=== PATIENT | female | born 2000 | race African-American/Black ===

== ENCOUNTER 2019-01-05 22:21 | Emergency (ER) | payer OTHER ==
--- OUTSIDE RECORDS SUMMARY | 2019-01-05 22:23 | XMS REPORT | Summary of Care ---
:2000 Author Organization [facility] Address [address] [place] [address] Encounter [facility] [id number] Date(s): 07/19/18 - 07/19/18 [facility] [address] [place] [address]- Discharge Disposition: Discharged to Home or Self Care Attending Physician: Ysabel Fox Admitting Physician: Ysabel Fox Referring Physician: Ysabel Fox Vital Signs No data available for this section Problem List No data available for this section Allergies, Adverse Reactions, Alerts No data available for this section Medications No data available for this section Results No data available for this section Immunizations No data available for this section Procedures No data available for this section Social History No data available for this section Assessment and Plan No data available for this section
--- OUTSIDE RECORDS SUMMARY | 2019-01-05 22:23 | XMS REPORT | Continuity of Care Document ---
:2000 Author Organization Interface Problems Problem Status Onset Classification Date Comments Source Date Reported STD Active Diagnosis 11/19/2017 [facility] Constipation, Active Problem 12/27/2018 [facility] unspecified Family constipation Practice type Acute Active Diagnosis 08/21/2018 [facility] tonsillitis, Family unspecified Practice etiology Acute midline Active Diagnosis 12/27/2018 [facility] low back pain Family without sciatica Practice Lower abdominal Active Diagnosis 12/27/2018 [facility] pain [facility] Practice Adult BMI Active Diagnosis 12/27/2018 [facility] 25.0-25.9 kg/sq Family m Practice Encounter for Active Diagnosis 12/27/2018 [facility] screening [facility] Practice Abdominal pain Active Diagnosis 02/20/2018 [facility] Left anterior Active Diagnosis 08/27/2018 [facility] knee pain [facility] Practice Abscess Active Diagnosis 11/19/2017 [facility] Nasal congestion Active Diagnosis 08/27/2018 [facility] Screen for STD Active Diagnosis 08/27/2018 [facility] Medications Medication Details Route Status Patient Ordering Order Source Instructions Provider Date Diflucan 1 tab(s) orally Active 150 mg orally Ruddy Sugar once 018 [facility] Keflex 1 cap(s) orally Active 500 mg orally Ruddy Sugar BID [address] [place] [address] azithromycin 2 TABS orally Active 500 mg orally Ruddy Sugar once a day [address] [place] [address] Flagyl 1 tab(s) orally Active 500 mg orally Ruddy Sugar BID [address] [place] [address] Tri-Sprintec 1 tab(s) orally Active triphasic 35 Ruddy 10/20/ Sugar mcg orally once 018 [facility] a day [facility] doxycycline 1 cap(s) orally Active hyclate 100 mg Ruddy 10/15/2 [facility] orally 2 times 018 [facility] a day with food [facility] Macrobid 1 cap(s) orally Active macrocrystals-m Ruddy Sugar onohydrate [facility] mg orally 2 Family times a day Practice Azithromycin 5 2 tablets orally Active 250 mg orally Ruddy Sugar Day Dose Pack on the once a day [facility] first day, Family then 1 Practice tablet daily for 4 days Allergies, Adverse Reactions, Alerts Substance Category Reaction Severity Reaction Status Date Comments Source type Reported N.K.D.A. Adverse Info Not Adverse Active Sugar Reaction Available Reaction [facility] Immunizations Immunization Date Given Site Status Last Updated Comments Source Results Order Results Value Reference Date Interpretation Comments Source Name Range Vital Signs Vital Sign Value Date Comments Source Height 66 12/20/2018 [facility] Weight 156 12/20/2018 [facility] Temperature Oral (F) 96.0 F 12/20/2018 [facility] Diastolic (mm Hg) 72 12/20/2018 [facility] Systolic (mm Hg) 110 12/20/2018 [facility] Height 66 08/19/2018 [facility] Weight 155 08/19/2018 [facility] Temperature Oral (F) 96.8 F 08/19/2018 [facility] Diastolic (mm Hg) 78 08/19/2018 [facility] Systolic (mm Hg) 112 08/19/2018 [facility] Height 66 07/19/2018 [facility] Weight 149 07/19/2018 [facility] Temperature Oral (F) 96.8 F 07/19/2018 [facility] Diastolic (mm Hg) 72 07/19/2018 [facility] Systolic (mm Hg) 108 07/19/2018 [facility] Height 66 05/11/2018 [facility] Weight 145 05/11/2018 [facility] Temperature Oral (F) 96.8 F 05/11/2018 [facility] Diastolic (mm Hg) 70 05/11/2018 [facility] Systolic (mm Hg) 106 05/11/2018 [facility] Height 66 02/11/2018 [facility] Weight 150 02/11/2018 [facility] Temperature Oral (F) 96.8 F 02/11/2018 [facility] Diastolic (mm Hg) 80 02/11/2018 [facility] Systolic (mm Hg) 102 02/11/2018 [facility] Height 66 11/12/2017 [facility] Weight 150 11/12/2017 [facility] Temperature Oral (F) 96.4 F 11/12/2017 [facility] Diastolic (mm Hg) 80 11/12/2017 [facility] Systolic (mm Hg) 110 11/12/2017 [facility] Encounters Location Location Encounter Encounter Reason Attending ADM DC Status Source Details Type Number For Provider Date Date Visit [facility] Outpatient [id number] Ysabel 07/19 07/19 Active [facility] Outpatient [id number] Ysabel 07/19 07/20 NATACHA Fox [facility] Procedures Procedure Code Date Perfomer Comments Source
--- OUTSIDE RECORDS SUMMARY | 2019-01-05 22:24 | XMS REPORT ---
:2000 Author Organization eClinicalWorks Care Team Providers Name Role Phone Ruddy Ysabel Provider Role Unavailable Allergies, Adverse Reactions, Alerts Substance Reaction Event Type N.K.D.A. Info Not Available Non Drug Allergy Problems Problem Type Condition Code Onset Dates Condition Status Assessment Abdominal pain R10.9 Active Assessment Constipation, unspecified K59.00 Active constipation type Problem Constipation, unspecified K59.00 Active constipation type Medications Medication Code System Code Instructions Start End Date Status Dosage Date Diflucan NDC 46892027435 150 mg orally November 12, Active 1 tab(s) once 2017 Keflex NDC 50648653632 500 mg orally November 12, Active 1 cap(s) BID 2017 doxycycline ND 52049846729 hyclate 100 mg Oct 15, Active 1 cap(s) orally 2 times a 2018 day with food Tri-Sprintec [facility] 62267501407 triphasic 35 mcg Oct 20, Active 1 tab(s) orally once a 2018 day Vital Signs Date/Time: February 11, 2018 Height 66 in Weight 150 lbs Temperature 96.8 F Pulse 91 /min BMI 24.21 Index Blood Pressure Diastolic 80 mm Hg Blood Pressure Systolic 102 mm Hg Results Name Result Date Reference Range Unit Abnormality Flag Urinalysis, dipstick ----Nitrite neg 20180211 ----Uro 2.0 20180211 ----Protein 30 mg/dL 20180211 ----pH 7.0 20180211 ----Blood neg 20180211 ----Glucose neg 20180211 ----Leukocytes neg 20180211 ----Bilirubin neg 20180211 ----Ketone trace 20180211 ----Specific [place] >=1.030 20180211 Summary Purpose eClinicalWorks Submission
--- OUTSIDE RECORDS SUMMARY | 2019-01-05 22:24 | XMS REPORT ---
:2000 Author Organization [employer] Care Team Providers Name Role Phone Ysabel Fox Provider Role Unavailable Allergies, Adverse Reactions, Alerts Substance Reaction Event Type N.K.D.A. Info Not Available Non Drug Allergy Problems Problem Type Condition Code Onset Dates Condition Status Assessment Left anterior knee pain M25.562 Active Problem Constipation, unspecified K59.00 Active constipation type Medications Medication Code Code Instructions Start End Status Dosage System Date Date Azithromycin 5 [facility] 34765063037 250 mg orally Active 2 tablets Day Dose Pack once a day on the first day, then 1 tablet daily for 4 days Tri-Sprintec [facility] 15089952487 triphasic 35 Oct 20, Active 1 tab(s) mcg orally once 2018 a day Vital Signs Date/Time: Jul 19, 2018 Height 66 in Weight 149 lbs Temperature 96.8 F BMI 24.05 Index Blood Pressure Diastolic 72 mm Hg Blood Pressure Systolic 108 mm Hg Results No Known Results Summary Purpose eClinicalWorks Submission
--- OUTSIDE RECORDS SUMMARY | 2019-01-05 22:24 | XMS REPORT ---
:2000 Author Organization eClinicalWorks Care Team Providers Name Role Phone Ysabel Fox Provider Role Unavailable Allergies, Adverse Reactions, Alerts Substance Reaction Event Type N.K.D.A. Info Not Available Non Drug Allergy Problems Problem Type Condition Code Onset Dates Condition Status Assessment Acute tonsillitis, unspecified J03.90 Active etiology Problem Constipation, unspecified K59.00 Active constipation type Medications Medication Code Code Instructions Start End Status Dosage System Date Date Tri-Sprintec [facility] [id number] triphasic 35 Oct 20, Active 1 tab(s) mcg orally once 2018 a day Azithromycin 5 [facility] 41681341124 250 mg orally Active 2 tablets Day Dose Pack once a day on the first day, then 1 tablet daily for 4 days Vital Signs Date/Time: May 11, 2018 Height 66 in Weight 145 lbs Temperature 96.8 F BMI 23.40 Index Blood Pressure Diastolic 70 mm Hg Blood Pressure Systolic 106 mm Hg Results No Known Results Summary Purpose eClinicalWorks Submission
--- OUTSIDE RECORDS SUMMARY | 2019-01-05 22:24 | XMS REPORT ---
:2000 Author Organization eClinicalWorks Care Team Providers Name Role Phone Ysabel Fox Provider Role Unavailable Allergies No Known Allergies Problems Problem Type Condition Code Onset Dates Condition Status Assessment STD (female) A64 Active Medications No Known Medications Results No Known Results Summary Purpose eClinicalWorks Submission
--- OUTSIDE RECORDS SUMMARY | 2019-01-05 22:24 | XMS REPORT ---
:2000 Author Organization eClinicalWorks Care Team Providers Name Role Phone Ruddy Ysabel Provider Role Unavailable Allergies No Known Allergies Problems Problem Type Condition Code Onset Dates Condition Status Problem Constipation, unspecified K59.00 Active constipation type Medications Medication Code System Code Instructions Start Date End Date Status Dosage Macrobid [facility] [id number] macrocrystals-mon Active 1 cap(s) ohydrate 100 mg orally 2 times a day Results No Known Results Summary Purpose eClinicalWorks Submission
--- OUTSIDE RECORDS SUMMARY | 2019-01-05 22:24 | XMS REPORT ---
:2000 Author Organization eClinicalWorks Care Team Providers Name Role Phone Ysabel Fox Provider Role Unavailable Allergies No Known Allergies Problems No Known Problems Medications Medication Code System Code Instructions Start End Date Status Dosage Date azithromycin NDC 20106220424 500 mg orally Oct 26, Active 2 TABS once a day 2017 Flagyl NDC 42106352027 500 mg orally Oct 26, Active 1 tab(s) BID 2018 Results No Known Results Summary Purpose eClinicalWorks Submission
--- OUTSIDE RECORDS SUMMARY | 2019-01-05 22:24 | XMS REPORT ---
:2000 Author Organization eClinicalWorks Care Team Providers Name Role Phone Ysabel Fox Provider Role Unavailable Allergies No Known Allergies Problems Problem Type Condition Code Onset Dates Condition Status Assessment Acute tonsillitis, unspecified J03.90 Active etiology Problem Constipation, unspecified K59.00 Active constipation type Medications Medication Code Code Instructions Start End Status Dosage System Date Date Azithromycin 5 NDC 71543282296 250 mg orally Active 2 tablets Day Dose Pack once a day on the first day, then 1 tablet daily for 4 days Results No Known Results Summary Purpose eClinicalWorks Submission
--- OUTSIDE RECORDS SUMMARY | 2019-01-05 22:24 | XMS REPORT ---
:2000 Author Organization eClinicalWorks Care Team Providers Name Role Phone Ysabel Fox Provider Role Unavailable Allergies No Known Allergies Problems Problem Type Condition Code Onset Dates Condition Status Problem Constipation, unspecified K59.00 Active constipation type Medications No Known Medications Results No Known Results Summary Purpose eClinicalWorks Submission
--- OUTSIDE RECORDS SUMMARY | 2019-01-05 22:24 | XMS REPORT ---
:2000 Author Organization eClinicalWorks Care Team Providers Name Role Phone Ysabel Fox Provider Role Unavailable Allergies, Adverse Reactions, Alerts Substance Reaction Event Type N.K.D.A. Info Not Available Non Drug Allergy Problems Problem Type Condition Code Onset Dates Condition Status Assessment Abscess L02.91 Active Assessment STD (female) A64 Active Medications Medication Code System Code Instructions Start End Date Status Dosage Date Tri-Sprintec ND 06374820042 triphasic 35 mcg Oct 20, Active 1 tab(s) orally once a 2018 day Flagyl NDC 29549996483 500 mg orally Oct 26, Active 1 tab(s) BID 2017 doxycycline NDC 20848349994 hyclate 100 mg Oct 15, Active 1 cap(s) orally 2 times a 2018 day with food Diflucan NDC 00341571848 150 mg orally November 12, Active 1 tab(s) once 2018 Keflex NDC 04727372655 500 mg orally November 12, Active 1 cap(s) BID 2018 azithromycin NDC 56951077559 500 mg orally Oct 26, Active 2 TABS once a day 2018 Vital Signs Date/Time: November 12, 2017 Height 66 in Weight 150 lbs Temperature 96.4 F Pulse 70 /min BMI 24.21 Index Blood Pressure Diastolic 80 mm Hg Blood Pressure Systolic 110 mm Hg Results Name Result Date Reference Range Unit Abnormality Flag GC & CHLAMYDIA URINE APTIMA Summary Purpose eClinicalWorks Submission
--- OUTSIDE RECORDS SUMMARY | 2019-01-05 22:24 | XMS REPORT ---
:2000 Author Organization eClinicalWorks Care Team Providers Name Role Phone Ysabel Fox Provider Role Unavailable Allergies, Adverse Reactions, Alerts Substance Reaction Event Type N.K.D.A. Info Not Available Non Drug Allergy Problems Problem Type Condition Code Onset Dates Condition Status Assessment Acute midline low back pain without M54.5 Active sciatica Problem Constipation, unspecified K59.00 Active constipation type Assessment Lower abdominal pain R10.30 Active Assessment Adult BMI 25.0-25.9 kg/sq m Z68.25 Active Assessment Encounter for screening Z13.9 Active Medications Medication Code Code Instructions Start End Status Dosage System Date Date Tri-Sprintec [facility] 24333327684 triphasic 35 Oct 20, Active 1 tab(s) mcg orally once 2018 a day Azithromycin 5 [facility] 20343100103 250 mg orally Active 2 tablets Day Dose Pack once a day on the first day, then 1 tablet daily for 4 days Vital Signs Date/Time: December 20, 2018 Height 66 in Weight 156 lbs Temperature 96.0 F BMI 25.18 Index Blood Pressure Diastolic 72 mm Hg Blood Pressure Systolic 110 mm Hg Results Name Result Date Reference Range Unit Abnormality Flag Q-Aptima Chlamydia/Gonorrhoeae Unisex (urine/urethral/endocervical Urinalysis, dipstick ----Nitrite neg [id number] ----Uro 1.0 20181221 ----Protein neg 20181221 ----pH 8.5 20181221 ----Blood neg [id number] ----Clarity clear 20181221 ----Glucose neg 20181221 ----Leukocytes neg [id number] ----Bilirubin neg [id number] ----Ketone neg 20181221 ----Color yellow 20181221 ----Specific [place] 1.025 20181221 Q-HCG, TOTAL, QN ----HCG, TOTAL, QN 26 [id number] mIU/mL H Summary Purpose eClinicalWorks Submission
--- OUTSIDE RECORDS SUMMARY | 2019-01-05 22:25 | XMS REPORT ---
:2000 Author Organization eClinicalWorks Care Team Providers Name Role Phone Ysabel Fox Provider Role Unavailable Allergies, Adverse Reactions, Alerts Substance Reaction Event Type N.K.D.A. Info Not Available Non Drug Allergy Problems Problem Type Condition Code Onset Dates Condition Status Assessment Left anterior knee pain M25.562 Active Problem Constipation, unspecified K59.00 Active constipation type Assessment Nasal congestion R09.81 Active Assessment Screen for STD (sexually Z11.3 Active transmitted disease) Medications Medication Code Code Instructions Start End Status Dosage System Date Date Azithromycin 5 [facility] 44679169057 250 mg orally Active 2 tablets Day Dose Pack once a day on the first day, then 1 tablet daily for 4 days Tri-Sprintec [facility] 71560269418 triphasic 35 Oct 20, Active 1 tab(s) mcg orally once 2018 a day Vital Signs Date/Time: Aug 19, 2018 Height 66 in Weight 155 lbs Temperature 96.8 F BMI 25.01 Index Blood Pressure Diastolic 78 mm Hg Blood Pressure Systolic 112 mm Hg Results Name Result Date Reference Range Unit Abnormality Flag Q-Aptima Chlamydia/Gonorrhoeae Unisex (urine/urethral/endocervical Q-HIV 1/2 EIA ANTIBODY SCREEN W/REFLEXES Summary Purpose eClinicalWorks Submission
[2019-01-05 23:53] LABS: Absolute Lymphocytes (CBC) 0.4 K/uL (0.7-4.9); Absolute Monocytes 0.2 K/uL (0.1-1.3); Absolute Neutrophil 12.2 K/uL (1.8-8.0); Basophils % 0.2 % (0-1.3); Eosinophils % 0.2 % (0-4.4); Hematocrit 37.4 % (36.0-45.0); Lymphocytes % 3.1 % (15.3-44.8); MPV 9.7 fL (7.6-11.3); Monocytes % 1.8 % (3.3-12.3)
[2019-01-05 23:54] LABS: Urine Blood NEGATIVE (NEG); Urine Glucose NEGATIVE (NEG); Urine Protein 2+ (NEG); Urine Specific Gravity >1.030 (1.005-1.030)
[2019-01-06] MEDS ORDERED: NA CHLORIDE 0.9% 1,000 ML ONE ×2 (00:02→01:07)
[2019-01-06] MEDS ORDERED: ONDANSETRON 4 MG/2 ML VIAL ONE (00:02)
[2019-01-06 00:07] LABS: BUN Blood Urea Nitrogen 10 mg/dL (7-18); Bicarbonate 23 mmol/L (21-32); Glucose Level 93 mg/dL (74-106); Potassium 3.8 mmol/L (3.5-5.1); Sodium Level 138 mmol/L (136-145)
[2019-01-06 00:08] LABS: Urine Volume 1 ML
[2019-01-06 00:10] LABS: Urine Culture Reflex Order REFLEXED; Urine RBC <5 /HPF (NONE SEEN)
[2019-01-06 00:11] LABS: Urine Bacteria 20-50 /HPF (<20)
--- NOTE | 2019-01-06 00:36 | ER ---
Nurse's Notes [facility] Name: Toyin Pimentel Age: 18 yrs Sex: Female : 2000 Arrival Date: 01/05/2019 Time: 22:21 Bed 15 Private MD: Ysabel Fox Diagnosis: Vomiting;Dehydration;Urinary tract infection, site not specified Presentation: 01/05 22:30 Presenting complaint: Patient states: I have been throwing up all day. Transition of ed1 care: patient was not received from another setting of care. Onset of symptoms was January 05, 2019. Risk Assessment: Do you want to hurt yourself or someone else? Patient reports no desire to harm self or others. Initial Sepsis Screen: Does the patient meet any 2 criteria? No. Patient's initial sepsis screen is negative. Does the patient have a suspected source of infection? No. Patient's initial sepsis screen is negative. Care prior to arrival: None. 22:30 Method Of Arrival: Ambulatory ed1 22:30 Acuity: HAYDEN 4 ed1 Triage Assessment: 22:31 General: Appears in no apparent distress. Behavior is calm, cooperative. Pain: Denies ed1 pain. GI: Reports vomiting. 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 - Social history:: Smoking status: Patient/guardian denies using tobacco. - Ebola Screening: : Patient negative for fever greater than or equal to 101.5 degrees Fahrenheit, and additional compatible Ebola Virus Disease symptoms Patient denies exposure to infectious person Patient denies travel to an Ebola-affected area in the 21 days before illness onset No symptoms or risks identified at this time. - Family history:: not pertinent. - Hospitalizations: : No recent hospitalization is reported. Screenin:00 Abuse screen: Denies threats or abuse. Nutritional screening: No deficits noted. jb4 Tuberculosis screening: No symptoms or risk factors identified. Fall Risk None identified. Assessment: 23:00 General: Appears in no apparent distress. comfortable, Behavior is calm, cooperative, jb4 appropriate for age. Pain: Denies pain. Neuro: Level of Consciousness is awake, alert, obeys commands, Oriented to person, place, time, situation. Cardiovascular: Patient's skin is warm and dry. Respiratory: Airway is patent Respiratory effort is even, unlabored, Respiratory pattern is regular, symmetrical. GI: Abdomen is flat, non-distended, Reports vomiting. : No signs and/or symptoms were reported regarding the genitourinary system. EENT: No signs and/or symptoms were reported regarding the EENT system. Derm: Skin is intact, Skin is pink, warm \T\ dry. Musculoskeletal: Circulation, motion, and sensation intact. 01/06 00:00 Reassessment: Patient appears in no apparent distress at this time. Patient and/or jb4 family updated on plan of care and expected duration. Pain level reassessed. Patient is alert, oriented x 3, equal unlabored respirations, skin warm/dry/pink. 01:00 Reassessment: Patient appears in no apparent distress at this time. Patient and/or jb4 family updated on plan of care and expected duration. Pain level reassessed. Patient is alert, oriented x 3, equal unlabored respirations, skin warm/dry/pink. Pt waiting on fluids to finish prior to discharge. 02:20 Reassessment: Patient appears in no apparent distress at this time. Patient and/or jb4 family updated on plan of care and expected duration. Pain level reassessed. Patient is alert, oriented x 3, equal unlabored respirations, skin warm/dry/pink. Patient states feeling better. Vital Signs: 01/05 22:31 BP 113 / 73; Pulse 79; Resp 16; Temp 98.0(O); Pulse Ox 99% on R/A; Weight 73.03 kg; ed1 Height 5 ft. 6 in. (167.64 cm); Pain 0/10; 01/06 01:00 BP 103 / 68; Pulse 83; Resp 16; Pulse Ox 99% on R/A; jb4 01:31 BP 114 / 54; Pulse 97; Resp 16; Pulse Ox 100% on R/A; mt 02:11 BP 107 / 54; Pulse 81; Resp 16; Pulse Ox 100% on R/A; jb4 01/05 22:31 Body Mass Index 25.99 (73.03 kg, 167.64 cm) ed1 ED Course: 01/05 22:21 Patient arrived in ED. am2 22:22 Ysabel Fox is Private Physician. am2 22:30 Triage completed. ed1 22:31 Arm band placed on left wrist. ed1 22:33 Rolando Manley MD is Attending Physician. rn 22:49 Say Slade, MADDIE is Primary Nurse. jb4 23:00 Patient has correct armband on for positive identification. Bed in low position. Call jb4 light in reach. Side rails up X 1. Pulse ox on. NIBP on. 23:20 Missed attempt(s): 20 gauge in right in left antecubital area. jb4 23:36 Inserted saline lock: 22 gauge in right antecubital area, using aseptic technique. mt Blood collected. 01/06 02:23 No provider procedures requiring assistance completed. IV discontinued, intact, jb4 bleeding controlled. Administered Medications: 01/05 23:05 Drug: NS 0.9% 1000 ml Route: IV; Rate: 1000 ml; Site: right antecubital; jb4 01/06 02:17 Follow up: Response: No adverse reaction; IV Status: Completed infusion; IV Intake: jb4 1000ml 01/05 23:07 Drug: Zofran 4 mg Route: IVP; Site: right antecubital; jb4 01/06 02:18 Follow up: Response: No adverse reaction; Nausea is decreased jb4 00:59 Drug: NS 0.9% 1000 ml Route: IV; Rate: 1000 ml; Site: left antecubital; jb4 02:17 Follow up: Response: No adverse reaction; IV Status: Completed infusion; IV Intake: jb4 1000ml 01:07 Drug: Macrobid 100 mg Route: PO; jb4 02:16 Follow up: Response: No adverse reaction jb4 Intake: 02:17 IV: 1000ml; Total: 1000ml. jb4 02:17 IV: 1000ml; Total: 2000ml. jb4 Outcome: 00:35 Discharge ordered by . rn 02:24 Discharged to home ambulatory. jb4 02:24 Condition: stable 02:24 Discharge instructions given to patient, Instructed on discharge instructions, follow up and referral plans. medication usage, Demonstrated understanding of instructions, follow-up care, medications, Prescriptions given X 2. 02:25 Patient left the ED. jb4 Signatures: Rolando Manley MD MD rn Kalyani Navarrete RN RN ed1 Say Slade RN RN jb4 Mirna Guillen am2 Beverley Tellez mt Corrections: (The following items were deleted from the chart) 02:20 01:00 Reassessment: Patient appears in no apparent distress at this time. Patient jb4 and/or family updated on plan of care and expected duration. Pain level reassessed. Patient is alert, oriented x 3, equal unlabored respirations, skin warm/dry/pink. jb4
--- NOTE | 2019-01-06 00:36 | EDPHYS ---
Physician Documentation [facility] Name: Toyin Pimentel Age: 18 yrs Sex: Female : 2000 Arrival Date: 01/05/2019 Time: 22:21 Bed 15 Private MD: Ysabel Fox ED Physician Rolando Manley HPI: 01/06 00:03 This 18 yrs old Black Female presents to ER via Ambulatory with complaints of Vomiting rn - 5 wks preg. 00:03 The patient presents to the emergency department with nausea, vomiting. rn 00:03 Onset: The symptoms/episode began/occurred today. Possible causes: unknown. Associated rn signs and symptoms: Pertinent positives: nausea, vomiting, Pertinent negatives: abdominal pain, fever, GI bleeding, vaginal discharge. Severity of symptoms: At their worst the symptoms were moderate in the emergency department the symptoms are unchanged. The patient has not experienced similar symptoms in the past. Reports approx 5 weeks , started throwing up today, no diarrhea or fever, mild cramping, but no abd pain. Feels dehydrated and not able to keep fluids down.. [employer]: 01/05 22:31 1, LMP 11/28/2018 ed1 Historical: - Allergies: 22:31 No Known Allergies; ed1 - Home Meds: 22:31 Vitamin Oral tab 1 tab once daily [Active]; ed1 - PMHx: 22:31 None; ed1 - PSHx: 22:31 None; ed1 - Immunization history:: Adult Immunizations up to date. - Social history:: Smoking status: Patient/guardian denies using tobacco. - Ebola Screening: : Patient negative for fever greater than or equal to 101.5 degrees Fahrenheit, and additional compatible Ebola Virus Disease symptoms Patient denies exposure to infectious person Patient denies travel to an Ebola-affected area in the 21 days before illness onset No symptoms or risks identified at this time. - Family history:: not pertinent. - Hospitalizations: : No recent hospitalization is reported. ROS: 01/06 00:03 Constitutional: Negative for fever, chills, and weight loss, Eyes: Negative for injury, rn pain, redness, and discharge, Neck: Negative for injury, pain, and swelling, Cardiovascular: Negative for chest pain, palpitations, and edema, Respiratory: Negative for shortness of breath, cough, wheezing, and pleuritic chest pain, Abdomen/GI: Negative for abdominal pain, diarrhea, and constipation, MS/Extremity: Negative for injury and deformity, Skin: Negative for injury, rash, and discoloration, Neuro: + generalized weakness Exam: 00:03 Constitutional: This is a well developed, well nourished patient who is awake, alert, rn and in no acute distress. Head/Face: Normocephalic, atraumatic. Eyes: Pupils equal round and reactive to light, extra-ocular motions intact. Lids and lashes normal. Conjunctiva and sclera are non-icteric and not injected. Cornea within normal limits. Periorbital areas with no swelling, redness, or edema. ENT: dry MM Neck: Trachea midline, no thyromegaly or masses palpated, and no cervical lymphadenopathy. Supple, full range of motion without nuchal rigidity, or vertebral point tenderness. No Meningismus. Cardiovascular: Regular rate and rhythm No pulse deficits. Respiratory: No increased work of breathing, no retractions or nasal flaring. Abdomen/GI: soft, non-tender Skin: Warm, dry, no cellulitis MS/ Extremity: Pulses equal, no cyanosis. Neurovascular intact. Full, normal range of motion. Equal circumference. Neuro: Awake and alert, GCS 15, oriented to person, place, time, and situation. Cranial nerves II-XII grossly intact. Motor strength 5/5 in all extremities. Sensory grossly intact. Cerebellar exam normal. Normal gait. Vital Signs: 01/05 22:31 BP 113 / 73; Pulse 79; Resp 16; Temp 98.0(O); Pulse Ox 99% on R/A; Weight 73.03 kg; ed1 Height 5 ft. 6 in. (167.64 cm); Pain 0/10; 01/06 01:00 BP 103 / 68; Pulse 83; Resp 16; Pulse Ox 99% on R/A; jb4 01:31 BP 114 / 54; Pulse 97; Resp 16; Pulse Ox 100% on R/A; mt 02:11 BP 107 / 54; Pulse 81; Resp 16; Pulse Ox 100% on R/A; jb4 01/05 22:31 Body Mass Index 25.99 (73.03 kg, 167.64 cm) ed1 MDM: 01/05 22:33 Patient medically screened. rn 01/06 00:34 Differential diagnosis: Nonspecific abd pain, gastritis, cholecystitis, pancreatitis, rn viral gastroenteritis, gastroenteritis. Differential diagnosis: appendicitis, diverticulitis. Data reviewed: vital signs, nurses notes, lab test result(s), and as a result, I will. Counseling: I had a detailed discussion with the patient and/or guardian regarding: the historical points, exam findings, and any diagnostic results supporting the discharge/admit diagnosis, lab results, the need for outpatient follow up, to return to the emergency department if symptoms worsen or persist or if there are any questions or concerns that arise at home. Response to treatment: the patient's symptoms have mildly improved after treatment, and as a result, I will discharge patient. Special discussion: I discussed with the patient/guardian in detail that at this point there is no indication for admission to the hospital. It is understood, however, that if the symptoms persist or worsen the patient needs to return immediately for re-evaluation. Based on the history and exam findings, there is no indication for further emergent testing or inpatient evaluation. I discussed with the patient/guardian the need to see the OB Gyne specialist for further evaluation of the symptoms. ED course: Pt improved, + dehydration, + UTI, will dc home and defer u/s to OB as has no abd tenderness or vaginal bleeding or leakage of fluid. . 01/05 22:40 Order name: BMP; Complete Time: 00:33 rn 01/05 22:40 Order name: Urine Microscopic Only; Complete Time: 00:33 rn 01/05 22:41 Order name: CBC with Diff 01/05 23:44 Order name: Urine Dipstick--Ancillary (enter results) [facility] 01/05 23:44 Order name: Urine --Ancillary (enter results) [facility] 01/05 23:45 Order name: Urine Dipstick-Ancillary; Complete Time: 00: [facility] 01/05 22:40 Order name: IV Start; Complete Time: 23:36 rn 01/05 23:45 Order name: Urine --Ancillary; Complete Time: 00:02 [facility] 01/06 00:15 Order name: Urine Culture [facility] 01/06 01:13 Order name: CBC Smear Scan [facility] 01/05 22:40 Order name: Urine Dipstick-Ancillary (obtain specimen); Complete Time: 23:42 rn Administered Medications: 01/05 23:05 Drug: NS 0.9% 1000 ml Route: IV; Rate: 1000 ml; Site: right antecubital; jb4 01/06 02:17 Follow up: Response: No adverse reaction; IV Status: Completed infusion; IV Intake: jb4 1000ml 01/05 23:07 Drug: Zofran 4 mg Route: IVP; Site: right antecubital; jb4 01/06 02:18 Follow up: Response: No adverse reaction; Nausea is decreased jb4 00:59 Drug: NS 0.9% 1000 ml Route: IV; Rate: 1000 ml; Site: left antecubital; jb4 02:17 Follow up: Response: No adverse reaction; IV Status: Completed infusion; IV Intake: jb4 1000ml 01:07 Drug: Macrobid 100 mg Route: PO; jb4 02:16 Follow up: Response: No adverse reaction jb4 Disposition: 01/06/19 00:35 Discharged to Home. Impression: Vomiting, Dehydration, Urinary tract infection, site not specified. - Condition is Stable. - Discharge Instructions: Dehydration, Adult, Nausea and Vomiting, Adult, and Urinary Tract Infection. - Prescriptions for Zofran ODT 4 mg Oral tablet,disintegrating - place 1 tablet by TRANSLINGUAL route every 12 hours As needed; 10 tablet. Macrobid 100 mg Oral Capsule - take 1 capsule by ORAL route every 12 hours for 7 days; 14 capsule. - Medication Reconciliation Form, Thank You Letter, Antibiotic Education, Prescription Opioid Use form. - Follow up: Private Physician; When: As needed; Reason: Recheck today's complaints, Re-evaluation by your physician. - Problem is new. - Symptoms have improved. Signatures: Dispatcher [employer] EDMS Rolando Manley MD MD rn Riggs, Erika, RN RN ed1 Say Slade RN RN jb4 Corrections: (The following items were deleted from the chart) 02:25 00:35 01/06/2019 00:35 Discharged to Home. Impression: Vomiting; Dehydration; Urinary jb4 tract infection, site not specified. Condition is Stable. Forms are Medication Reconciliation Form, Thank You Letter, Antibiotic Education, Prescription Opioid Use. Follow up: Private Physician; When: As needed; Reason: Recheck today's complaints, Re-evaluation by your physician. Problem is new. Symptoms have improved. rn
[2019-01-06] MEDS ORDERED: NITROFURAN MACRO 100 MG CAP PO ONE (01:08)
[2019-01-06 01:13] LABS: Blood Morphology Comment NOT SEEN (NOT SEEN); Platelet Estimate ADEQ; Urine White Blood Cell Casts OK
== END 2019-01-06 02:25 | disposition home or self-care (01) ==
LOC: ER 22:21
DX: O21.9 Vomiting of pregnancy, unspecified (principal); O23.41 Unspecified infection of urinary tract in pregnancy, first trimester; E86.0 Dehydration; Z3A.01 Less than 8 weeks gestation of pregnancy
CPT/HCPCS: 36415; 80048; 81003; 81015; 81025; 85025; 87077; 87086; 87088; 87186; 96361; 96374; 99284; J2405; J7030

== ENCOUNTER 2021-08-07 13:00 | Emergency (ER) | payer BC, OTHER ==
--- OUTSIDE RECORDS SUMMARY | 2021-08-07 13:05 | XMS REPORT | Continuity of Care Document ---
:2000 Author Organization [facility] t Address [address] [place] [address] Care Team Providers Name Role Phone Paolo Russo DO Attending Clinician Mira MINE ENVIRONMENTAL ENGINEER Attending Clinician Sammie PERKINS, M Attending Clinician Unavailable MIRA Attending Clinician Unavailable Siena ZAMORANO C Attending Clinician Juan C Saleem MD Attending Clinician Flavia Phillips MD Attending Clinician 1, [facility] Usg Room Attending Clinician Unavailable Doctor Unassigned, Name Attending Clinician Unavailable Adriana SANCHEZ, L Attending Clinician Rocky Attending Clinician Unavailable Blu SANCHEZ W Attending Clinician Ultrasound Attending Clinician Unavailable Deepthi SANCHEZ M Attending Clinician Juan C Saleem MD Admitting Clinician Payers Payer Name Policy Type Policy Number Effective Date Expiration Date S ource Advance Directives Directive Decision Effective Termination Comments Source Date Date Healthcare Agents on N/A [facility] Agent Medical RelationshipCommunicationRoderick Branch MargaritoFatherHealth Care [phone] (Mobile) Fatemeh GhazalyMotherHealth Care [phone] (Mobile) Problems Condition Condition Condition Status Onset Resolution Last Treating Co mments Source Name Details Category Date Date Treatment Clinician Date Papanicola Papanicola Disease Active Overview : Univers ou smear ou smear 3-05 Repeat ity of of cervix of cervix 00:00: [place] with low with low 00 Medica l grade 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) BMI BMI Disease Active 2018-09 Univers 27.0-27.9, 27.0-27.9, 2-03 it y of adult adult 00:00: [address] Anemia, Anemia, Disease Active Univers antepartum antepartum 9-11 it y of , second , second 00:00: [place] trimester trimester 00 [facility] Vaginal Vaginal Disease Active Univers bleeding bleeding 9-10 ity of 00:00: [place] [address] Medical Branch 25 weeks 25 weeks Disease Active Unive rs gestation gestation 9-10 ity of of of 00:00: [place] 00 [facility] Echogenic Echogenic Disease Active Overview: Univers bowel of bowel of 7-31 And ity of fetus fetus 00:00: echogenic [place] [address] cardiac Medical foci, s/p Branch amniocent esis, results pending. UTI in UTI in Disease Active Overview: Univer s 5-10 neg nini ity of 00:00: [address] Abnormal Abnormal Disease Active Overview: Un hardeep glucose glucose 5-08 Passed ity of 00:00: 3hr [place] [address] gttTried Medical unable Branch to hold glucola down, pending A1c, will start checking blood sugars now, repeat 3hr gtt in 2nd trimester Supervisio Supervisio Disease Active U nivers n of n of 5-07 ity of high-risk high[place]risk [place] [facility] Allergies, Adverse Reactions, Alerts Allergy Allergy Status Severity Reaction(s) Onset Inactive Treating Comm ents Source Name Type Date Date Clinician NO KNOWN Allergy Active [facility] NO KNOWN Drug Active Univers ALLERGIE Class ity of S [facility] Social History Social Habit Start Date Stop Date Quantity Comments Source ASSERTION 2018-12-12 University 00:00:00 [facility] Tobacco use and 2019-11-17 2019-11-17 Never used Universit y of exposure 00:00:00 00:00:00 [facility] Alcohol intake 2019-11-17 2019-11-17 Current [facility] 00:00:00 00:00:00 non-drinker of [facility] alcohol Branch (finding) Sex Ass[birth year] At [birth year] Universit y of 00:00:00 00:00:00 [facility] Smoking Status Start Date Stop Date Source Never smoker [facility] Medications Ordered Filled Start Stop Current Ordering Indication Dosage Frequency Signature Comments Components Source Medication Medication Date Date Medication? Clinician (SIG) Name Name levonorgest 2020-0 Yes [id number] 1{tbl} Take 1 Univers rel-ethinyl 2-25 tablet by ity of estradiol 00:00: mouth [place] (LARISSIA) 00 daily. Medical 0.1-20 Branch mg-mcg per tablet levonorgest 2020-0 Yes [id number] 1{tbl} Take 1 Univers rel-ethinyl 2-25 tablet by ity of estradiol 00:00: mouth [place] (LARISSIA) 00 daily. Medical 0.1-20 Branch mg-mcg per tablet levonorgest 2020-0 Yes [id number] 1{tbl} Take 1 Univers rel-ethinyl 2-25 tablet by ity of estradiol 00:00: mouth [place] (LARISSIA) 00 daily. Medical 0.1-20 Branch mg-mcg per tablet levonorgest 2020-0 Yes [id number] 1{tbl} Take 1 Univers rel-ethinyl 2-25 tablet by ity of estradiol 00:00: mouth [place] (LARISSIA) 00 daily. Medical 0.1-20 Branch mg-mcg per tablet levonorgest 2020-0 Yes [id number] 1{tbl} Take 1 Univers rel-ethinyl 2-25 tablet by ity of estradiol 00:00: mouth [place] (LARISSIA) 00 daily. Medical 0.1-20 Branch mg-mcg per tablet docusate 2018-09 Yes [id number] 240mg Take 1 Uni vers calcium 240 2-18 capsule by it y of mg capsule 00:00: mouth [place] 00 daily as Medical needed for Branch Constipati on. ibuprofen 2018-09 Yes [id number] 600mg Take 1 Un hardeep 600 mg 2-18 tablet by ity of tablet 00:00: mouth [place] 00 every 6 Medical (six) Branch hours as needed (Pain). Take with food or milk. Iron Fum & 2019- Yes [id number] 1{capsu Take 1 Univers P-FA-Vit B 2-18 le} capsule by ity of & C No.9 00:00: mouth [place] (INTEGRA 00 daily. Medical PLUS) 125 Branch mg iron- 1 mg Cap docusate 2018-09 Yes [id number] 240mg Take 1 Uni vers calcium 240 2-18 capsule by it y of mg capsule 00:00: mouth [place] 00 daily as Medical needed for Branch Constipati on. ibuprofen 2018-09 Yes [id number] 600mg Take 1 Un hardeep 600 mg 2-18 tablet by ity of tablet 00:00: mouth [place] 00 every 6 Medical (six) Branch hours as needed (Pain). Take with food or milk. Iron Fum & 2018-09 Yes [id number] 1{capsu Take 1 Univers P-FA-Vit B 2-18 le} capsule by ity of & C No.9 00:00: mouth [place] (INTEGRA 00 daily. Medical PLUS) 125 Branch mg iron- 1 mg Cap docusate 2018-09 Yes [id number] 240mg Take 1 Uni vers calcium 240 2-18 capsule by it y of mg capsule 00:00: mouth [place] 00 daily as Medical needed for Branch Constipati on. ibuprofen 2018-09 Yes [id number] 600mg Take 1 Un hardeep 600 mg 2-18 tablet by ity of tablet 00:00: mouth [place] 00 every 6 Medical (six) Branch hours as needed (Pain). Take with food or milk. Iron Fum & 2018-09 Yes [id number] 1{capsu Take 1 Univers P-FA-Vit B 2-18 le} capsule by ity of & C No.9 00:00: mouth [place] (INTEGRA 00 daily. Medical PLUS) 125 Branch mg iron- 1 mg Cap docusate 2018-09 Yes [id number] 240mg Take 1 Uni vers calcium 240 2-18 capsule by it y of mg capsule 00:00: mouth [place] 00 daily as Medical needed for Branch Constipati on. ibuprofen 2018-09 Yes [id number] 600mg Take 1 Un hardeep 600 mg 2-18 tablet by ity of tablet 00:00: mouth [place] 00 every 6 Medical (six) Branch hours as needed (Pain). Take with food or milk. Iron Fum & 2018-09 Yes [id number] 1{capsu Take 1 Univers P-FA-Vit B 2-18 le} capsule by ity of & C No.9 00:00: mouth [place] (INTEGRA 00 daily. Medical PLUS) 125 Branch mg iron- 1 mg Cap docusate 2018-09 Yes [id number] 240mg Take 1 Uni vers calcium 240 2-18 capsule by it y of mg capsule 00:00: mouth [place] 00 daily as Medical needed for Branch Constipati on. ibuprofen 2018-09 Yes [id number] 600mg Take 1 Un hardeep 600 mg 2-18 tablet by ity of tablet 00:00: mouth [place] 00 every 6 Medical (six) Branch hours as needed (Pain). Take with food or milk. Iron Fum & 2019- Yes [id number] 1{capsu Take 1 Univers P-FA-Vit B 2-18 le} capsule by ity of & C No.9 00:00: mouth [place] (INTEGRA 00 daily. Medical PLUS) 125 Branch mg iron- 1 mg Cap 2018-0 Yes [facility] mouth. ity of fum/folic 15:26: [place] [address] Medical ( 1 Branch + 1 ORAL) 2019-0 Yes [facility] 9-10 mouth. ity of fum/folic 15:26: [place] [address] Medical ( 1 Branch + 1 ORAL) 2019-0 Yes Take by Unive rs vit/iron 9-10 mouth. ity of fum/folic 15:26: [place] [address] Medical ( 1 Branch + 1 ORAL) 2019-0 Yes [facility] 9-10 mouth. ity of fum/folic 15:26: [place] [address] Medical ( 1 Branch + 1 ORAL) 2019-0 Yes [facility] 9-10 mouth. ity of fum/folic 15:26: [place] [address] Medical ( 1 Branch + 1 ORAL) D5W-LR IV 2019-0 Yes 1000mL at 125 Univ ers infusion 9-10 mL/hr, IV ity of 1,000 mL 04:30: [place] CONTINUOUS Medical , Starting Branch 05/23/19 at 2330, Until Discontinu ed, Routine lactated 2018-0 2019- No 1000mL at 150 Univ ers ringers IV 9-10 09-10 mL/hr, ity of infusion 04:30: 02:52 1,000 mL, [place] as 1,000 mL 00 :00 IV Medical Infusion, Branch ONCE, 1 dose, 05/23/19 at 2330, Routine metroNIDAZO Yes [id number] 500mg Take 2 Univers LE 250 mg 9-10 tablets by ity of tablet 00:00: mouth (two) Medical times Branch daily. metroNIDAZO Yes [id number] 500mg Take 2 Univers LE 250 mg 9-10 tablets by ity of tablet 00:00: mouth (two) Medical times Branch daily. Iron, Cbn & Yes [id number] 1{tbl} Take 1 Univers Gluc-FA-B12 9-10 tablet by ity of -C-DSS 00:00: mouth [place] (FERRALET [address] DUAL-IRON DELIVERY) 90-1-12-50 mg-mg-mcg-m g per tablet metroNIDAZO Yes [id number] 500mg Take 2 Univers LE 250 mg 9-10 tablets by ity of tablet 00:00: mouth (two) Medical times [place] daily. Iron, Cbn & Yes [id number] 1{tbl} Take 1 Univers Gluc-FA-B12 9-10 tablet by ity of -C-DSS 00:00: mouth [place] (FERRALET [address] DUAL-IRON DELIVERY) 90-1-12-50 mg-mg-mcg-m g per tablet metroNIDAZO Yes [id number] 500mg Take 2 Univers LE 250 mg 9-10 tablets by ity of tablet 00:00: mouth (two) Medical times [place] daily. Iron, Cbn & Yes [id number] 1{tbl} Take 1 Univers Gluc-FA-B12 9-10 tablet by ity of -C-DSS 00:00: mouth [place] (FERRALET [address] DUAL-IRON DELIVERY) 90-1-12-50 mg-mg-mcg-m g per tablet metroNIDAZO Yes [id number] 500mg Take 2 Univers LE 250 mg 9-10 tablets by ity of tablet 00:00: mouth 2 (two) Medical times [place] daily. Iron, Cbn & Yes [id number] 1{tbl} Take 1 Univers Gluc-FA-B12 9-10 tablet by ity of -C-DSS 00:00: mouth [place] (FERRALET 00 daily. [facility] 90 Branch DUAL-IRON DELIVERY) 90-1-12-50 mg-mg-mcg-m g per tablet [place] 2018-0 Yes [id number] Use as Uni vers Device with 6-12 directed ity of Lancets 00:00: [place] (ONE TOUCH 00 Medical [facility] Kit Branch Blood-Gluco 2018-0 Yes [id number] Use as Univers se Meter 6-12 directed ity of (ONETOUCH 00:00: [place] VERIO SYNC) 00 Medical Kit Branch blood sugar 2018-0 Yes [id number] Use as Univers diagnostic 6-12 directed ity o f (ONETOUCH 00:00: [place] VERIO) 00 Medical strip Branch [place] 0 Yes [id number] Use as Uni vers Device with 6-12 directed ity of Lancets 00:00: [place] (ONE TOUCH 00 Medical [facility] Kit Branch Blood-Gluco 2018-0 Yes [id number] Use as Univers se Meter 6-12 directed ity of (ONETOUCH 00:00: [place] VERIO SYNC) 00 Medical Kit Branch blood sugar 2018-0 Yes [id number] Use as Univers diagnostic 6-12 directed ity o f (ONETOUCH 00:00: [place] VERIO) 00 Medical strip Branch [place] 2018-0 Yes [id number] Use as Uni vers Device with 6-12 directed ity of Lancets 00:00: [place] (ONE TOUCH 00 Medical [facility] Kit Branch Blood-Gluco 2018-0 Yes [id number] Use as Univers se Meter 6-12 directed ity of (ONETOUCH 00:00: [place] VERIO SYNC) 00 Medical Kit Branch blood sugar 2018-0 Yes [id number] Use as Univers diagnostic 6-12 directed ity o f (ONETOUCH 00:00: [place] VERIO) 00 Medical strip Branch [place] 2019-0 Yes [id number] Use as Uni vers Device with 6-12 directed ity of Lancets 00:00: [place] (ONE TOUCH 00 Medical [facility] Kit Branch Blood-Gluco 2018-0 Yes [id number] Use as Univers se Meter 6-12 directed ity of (ONETOUCH 00:00: [place] VERIO SYNC) 00 Medical Kit Branch blood sugar 2018-0 Yes [id number] Use as Univers diagnostic 6-12 directed ity o f (ONETOUCH 00:00: [place] VERIO) 00 Medical strip Branch [place] 2019-0 Yes [id number] Use as Uni vers Device with 6-12 directed ity of Lancets 00:00: [place] (ONE TOUCH 00 Medical [facility] Kit Branch Blood-Gluco 2019-0 Yes [id number] Use as Univers se Meter 6-12 directed ity of (ONETOUCH 00:00: [place] VERIO SYNC) 00 Medical Kit Branch blood sugar 2019-0 Yes [id number] Use as Univers diagnostic 6-12 directed ity o f (ONETOUCH 00:00: [place] VERIO) 00 Medical strip Branch [place] 2019-0 Yes [id number] Use as Uni vers Device with 6-12 directed ity of Lancets 00:00: [place] (ONE TOUCH 00 Medical [facility] Kit Branch Blood-Gluco 2019-0 Yes [id number] Use as Univers se Meter 6-12 directed ity of (ONETOUCH 00:00: [place] VERIO SYNC) 00 Medical Kit Branch blood sugar 2019-0 Yes [id number] Use as Univers diagnostic 6-12 directed ity o f (ONETOUCH 00:00: [place] VERIO) 00 Medical strip Branch [place] 2019-0 Yes [id number] Use as Uni vers Device with 6-12 directed ity of Lancets 00:00: [place] (ONE TOUCH 00 Medical [facility] Kit Branch Blood-Gluco 2019-0 Yes [id number] Use as Univers se Meter 6-12 directed ity of (ONETOUCH 00:00: [place] VERIO SYNC) 00 Medical Kit Branch Blood-Gluco 2019-0 Yes [id number] Use as Univers se Meter 6-12 directed ity of (ONETOUCH 00:00: [place] VERIO SYNC) 00 Medical Kit Branch blood sugar 2019-0 Yes [id number] Use as Univers diagnostic 6-12 directed ity o f (ONETOUCH 00:00: [place] VERIO) 00 Medical strip Branch [place] 2019-0 Yes [id number] Use as Uni vers Device with 6-12 directed ity of Lancets 00:00: [place] (ONE TOUCH 00 Medical DELICA) Kit Branch blood sugar 2019-0 Yes [id number] Use as Univers diagnostic 6-12 directed ity o f (ONETOUCH 00:00: [place] VERIO) 00 Medical strip Branch [place] 2019-0 Yes [id number] Use as Uni vers Device with 6-12 directed ity of Lancets 00:00: [place] (ONE TOUCH 00 Medical DELICA) Kit Branch Blood-Gluco 2019-0 Yes [id number] Use as Univers se Meter 6-12 directed ity of (ONETOUCH 00:00: [place] VERIO SYNC) 00 Medical Kit Branch blood sugar 2019-0 Yes [id number] Use as Univers diagnostic 6-12 directed ity o f (ONETOUCH 00:00: [place] VERIO) 00 Medical strip Branch [place] 2019-0 Yes [id number] Use as Uni vers Device with 6-12 directed ity of Lancets 00:00: [place] (ONE TOUCH 00 Medical DELICA) Kit Branch Blood-Gluco 2019-0 Yes [id number] Use as Univers se Meter 6-12 directed ity of (ONETOUCH 00:00: [place] VERIO SYNC) 00 Medical Kit Branch blood sugar 2019-0 Yes [id number] Use as Univers diagnostic 6-12 directed ity o f (ONETOUCH 00:00: [place] VERIO) 00 Medical strip Branch [place] 2019-0 Yes [id number] Use as Uni vers Device with 6-12 directed ity of Lancets 00:00: [place] (ONE TOUCH 00 Medical DELICA) Kit Branch Blood-Gluco 2019-0 Yes [id number] Use as Univers se Meter 6-12 directed ity of (ONETOUCH 00:00: [place] VERIO SYNC) 00 Medical Kit Branch blood sugar 2019-0 Yes [id number] Use as Univers diagnostic 6-12 directed ity o f (ONETOUCH 00:00: [place] VERIO) 00 Medical strip Branch [place] 2019-0 Yes [id number] Use as Uni vers Device with 6-12 directed ity of Lancets 00:00: [place] (ONE TOUCH 00 Medical DELICA) Kit Branch Blood-Gluco 2019-0 Yes [id number] Use as Univers se Meter 6-12 directed ity of (ONETOUCH 00:00: [place] VERIO SYNC) 00 Medical Kit Branch blood sugar 2019-0 Yes [id number] Use as Univers diagnostic 6-12 directed ity o f (ONETOUCH 00:00: [place] VERIO) 00 Medical strip Branch [place] 2019-0 Yes [id number] Use as Uni vers Device with 6-12 directed ity of Lancets 00:00: [place] (ONE TOUCH 00 Medical DELICA) Kit Branch Blood-Gluco 2019-0 Yes [id number] Use as Univers se Meter 6-12 directed ity of (ONETOUCH 00:00: [place] VERIO SYNC) 00 Medical Kit Branch blood sugar 2019-0 Yes [id number] Use as Univers diagnostic 6-12 directed ity o f (ONETOUCH 00:00: [place] VERIO) 00 Medical strip Branch [place] 2019-0 Yes [id number] Use as Uni vers Device with 6-12 directed ity of Lancets 00:00: [place] (ONE TOUCH 00 Medical DELICA) Kit Branch Blood-Gluco 2019-0 Yes [id number] Use as Univers se Meter 6-12 directed ity of (ONETOUCH 00:00: [place] VERIO SYNC) 00 Medical Kit Branch blood sugar 2019-0 Yes [id number] Use as Univers diagnostic 6-12 directed ity o f (ONETOUCH 00:00: [place] VERIO) 00 Medical strip Branch [place] 2019-0 Yes [id number] Use as Uni vers Device with 6-12 directed ity of Lancets 00:00: [place] (ONE TOUCH 00 Medical DELICA) Kit Branch Blood-Gluco 2019-0 Yes [id number] Use as Univers se Meter 6-12 directed ity of (ONETOUCH 00:00: [place] VERIO SYNC) 00 Medical Kit Branch blood sugar 2019-0 Yes [id number] Use as Univers diagnostic 6-12 directed ity o f (ONETOUCH 00:00: [place] VERIO) 00 Medical strip Branch [place] 2019-0 Yes [id number] Use as Uni vers Device with 6-12 directed ity of Lancets 00:00: [place] (ONE TOUCH 00 Medical DELICA) Kit Branch Blood-Gluco 2019-0 Yes [id number] Use as Univers se Meter 6-12 directed ity of (ONETOUCH 00:00: [place] VERIO SYNC) 00 Medical Kit Branch blood sugar 2019-0 Yes [id number] Use as Univers diagnostic 6-12 directed ity o f (ONETOUCH 00:00: [place] VERIO) 00 Medical strip Branch [place] 2019-0 Yes [id number] Use as Uni vers Device with 6-12 directed ity of Lancets 00:00: [place] (ONE TOUCH 00 Medical DELICA) Kit Branch Blood-Gluco 2019-0 Yes [id number] Use as Univers se Meter 6-12 directed ity of (ONETOUCH 00:00: [place] VERIO SYNC) 00 Medical Kit Branch blood sugar 2019-0 Yes [id number] Use as Univers diagnostic 6-12 directed ity o f (ONETOUCH 00:00: [place] VERIO) 00 Medical strip Branch [place] 2019-0 Yes [id number] Use as Uni vers Device with 6-12 directed ity of Lancets 00:00: [place] (ONE TOUCH 00 Medical DELICA) Kit Branch Blood-Gluco 2019-0 Yes [id number] Use as Univers se Meter 6-12 directed ity of (ONETOUCH 00:00: [place] VERIO SYNC) 00 Medical Kit Branch blood sugar 2019-0 Yes [id number] Use as Univers diagnostic 6-12 directed ity o f (ONETOUCH 00:00: [place] VERIO) 00 Medical strip Branch [place] 2019-0 Yes [id number] Use as Uni vers Device with 6-12 directed ity of Lancets 00:00: [place] (ONE TOUCH 00 Medical DELICA) Kit Branch Blood-Gluco 2019-0 Yes [id number] Use as Univers se Meter 6-12 directed ity of (ONETOUCH 00:00: [place] VERIO SYNC) 00 Medical Kit Branch blood sugar 2019-0 Yes [id number] Use as Univers diagnostic 6-12 directed ity o f (ONETOUCH 00:00: [place] VERIO) 00 Medical strip Branch [place] 2019-0 Yes [id number] Use as Uni vers Device with 6-12 directed ity of Lancets 00:00: [place] (ONE TOUCH 00 Medical DELICA) Kit Branch Blood-Gluco 2019-0 Yes [id number] Use as Univers se Meter 6-12 directed ity of (ONETOUCH 00:00: [place] VERIO SYNC) 00 Medical Kit Branch blood sugar 2019-0 Yes [id number] Use as Univers diagnostic 6-12 directed ity o f (ONETOUCH 00:00: [place] VERIO) 00 Medical strip Branch [place] 2019-0 Yes [id number] Use as Uni vers Device with 6-12 directed ity of Lancets 00:00: [place] (ONE TOUCH 00 Medical DELICA) Kit Branch Blood-Gluco 2019-0 Yes [id number] Use as Univers se Meter 6-12 directed ity of (ONETOUCH 00:00: [place] VERIO SYNC) 00 Medical Kit Branch blood sugar 0 Yes [id number] Use as Univers diagnostic 6-12 directed ity o f (ONETOUCH 00:00: [place] VERIO) 00 Medical strip Branch [place] 0 Yes [id number] Use as Uni vers Device with 6-12 directed ity of Lancets 00:00: [place] (ONE TOUCH 00 Medical [facility] Kit Branch Blood-Gluco Yes [id number] Use as Univers se Meter 6-12 directed ity of (ONETOUCH 00:00: [place] VERIO SYNC) 00 Medical Kit Branch blood sugar Yes [id number] Use as Univers diagnostic 6-12 directed ity o f (ONETOUCH 00:00: [place] VERIO) 00 Medical strip Branch [place] Yes [id number] Use as Uni vers Device with 6-12 directed ity of Lancets 00:00: [place] (ONE TOUCH 00 Medical [facility]) Kit Branch Blood-Gluco Yes [id number] Use as Univers se Meter 6-12 directed ity of (ONETOUCH 00:00: [place] VERIO SYNC) Medical Kit Branch blood sugar Yes [id number] Use as Univers diagnostic 6-12 directed ity o f (ONETOUCH 00:00: [place] VERIO) 00 Medical strip Branch proMETHazin Yes [id number] 25mg Take 1 Univers e 25 mg 6-11 tablet by ity of tablet 00:00: mouth [place] 00 every 4 Medical (four) Branch hours as needed for Nausea and Vomiting (N/V). proMETHazin Yes [id number] 25mg Take 1 Univers e 25 mg 6-11 tablet by ity of tablet 00:00: mouth [place] 00 every 4 Medical (four) Branch hours as needed for Nausea and Vomiting (N/V). proMETHazin Yes [id number] 25mg Take 1 Univers e 25 mg 6-11 tablet by ity of tablet 00:00: mouth [place] 00 every 4 Medical (four) Branch hours as needed for Nausea and Vomiting (N/V). proMETHazin Yes [id number] 25mg Take 1 Univers e 25 mg 6-11 tablet by ity of tablet 00:00: mouth [place] 00 every 4 Medical (four) Branch hours as needed for Nausea and Vomiting (N/V). proMETHazin 2018-0 Yes [id number] 25mg Take 1 Univers e 25 mg 6-11 tablet by ity of tablet 00:00: mouth [place] 00 every 4 Medical (four) Branch hours as needed for Nausea and Vomiting (N/V). proMETHazin 0 Yes [id number] 25mg Take 1 Univers e 25 mg 6-11 tablet by ity of tablet 00:00: mouth [place] 00 every 4 Medical (four) Branch hours as needed for Nausea and Vomiting (N/V). proMETHazin 0 Yes [id number] 25mg Take 1 Univers e 25 mg 6-11 tablet by ity of tablet 00:00: mouth [place] 00 every 4 Medical (four) Branch hours as needed for Nausea and Vomiting (N/V). proMETHazin Yes [id number] 25mg Take 1 Univers e 25 mg 6-11 tablet by ity of tablet 00:00: mouth [place] 00 every 4 Medical (four) Branch hours as needed for Nausea and Vomiting (N/V). proMETHazin 0 Yes [id number] 25mg Take 1 Univers e 25 mg 6-11 tablet by ity of tablet 00:00: mouth [place] 00 every 4 Medical (four) Branch hours as needed for Nausea and Vomiting (N/V). proMETHazin 2018-0 Yes [id number] 25mg Take 1 Univers e 25 mg 6-11 tablet by ity of tablet 00:00: mouth [place] 00 every 4 Medical (four) Branch hours as needed for Nausea and Vomiting (N/V). proMETHazin 0 Yes [id number] 25mg Take 1 Univers e 25 mg 6-11 tablet by ity of tablet 00:00: mouth [place] 00 every 4 Medical (four) Branch hours as needed for Nausea and Vomiting (N/V). proMETHazin 2018-0 Yes [id number] 25mg Take 1 Univers e 25 mg 6-11 tablet by ity of tablet 00:00: mouth [place] 00 every 4 Medical (four) Branch hours as needed for Nausea and Vomiting (N/V). proMETHazin 2018-0 Yes [id number] 25mg Take 1 Univers e 25 mg 6-11 tablet by ity of tablet 00:00: mouth [place] 00 every 4 Medical (four) Branch hours as needed for Nausea and Vomiting (N/V). proMETHazin 2019-0 Yes [id number] 25mg Take 1 Univers e 25 mg 6-11 tablet by ity of tablet 00:00: mouth [place] 00 every 4 Medical (four) Branch hours as needed for Nausea and Vomiting (N/V). proMETHazin 2018-0 Yes [id number] 25mg Take 1 Univers e 25 mg 6-11 tablet by ity of tablet 00:00: mouth [place] 00 every 4 Medical (four) Branch hours as needed for Nausea and Vomiting (N/V). proMETHazin 0 Yes [id number] 25mg Take 1 Univers e 25 mg 6-11 tablet by ity of tablet 00:00: mouth [place] 00 every 4 Medical (four) Branch hours as needed for Nausea and Vomiting (N/V). proMETHazin 0 Yes [id number] 25mg Take 1 Univers e 25 mg 6-11 tablet by ity of tablet 00:00: mouth [place] 00 every 4 Medical (four) Branch hours as needed for Nausea and Vomiting (N/V). proMETHazin 0 Yes [id number] 25mg Take 1 Univers e 25 mg 6-11 tablet by ity of tablet 00:00: mouth [place] 00 every 4 Medical (four) Branch hours as needed for Nausea and Vomiting (N/V). proMETHazin 0 Yes [id number] 25mg Take 1 Univers e 25 mg 6-11 tablet by ity of tablet 00:00: mouth [place] 00 every 4 Medical (four) Branch hours as needed for Nausea and Vomiting (N/V). proMETHazin 2018-0 Yes [id number] 25mg Take 1 Univers e 25 mg 6-11 tablet by ity of tablet 00:00: mouth [place] 00 every 4 Medical (four) Branch hours as needed for Nausea and Vomiting (N/V). proMETHazin 2019-0 Yes [id number] 25mg Take 1 Univers e 25 mg 6-11 tablet by ity of tablet 00:00: mouth [place] 00 every 4 Medical (four) Branch hours as needed for Nausea and Vomiting (N/V). proMETHazin 2019-0 Yes [id number] 25mg Take 1 Univers e 25 mg 6-11 tablet by ity of tablet 00:00: mouth [place] 00 every 4 Medical (four) Branch hours as needed for Nausea and Vomiting (N/V). proMETHazin Yes [id number] 25mg Take 1 Univers e 25 mg 6-11 tablet by ity of tablet 00:00: mouth [place] 00 every 4 Medical (four) Branch hours as needed for Nausea and Vomiting (N/V). Nitrofurant Yes [id number] 100mg Take 1 Univers oin&Nit. 5-10 capsule by ity o f [place] ([place]CR[place] 00 (two) Medical 100 mg times Branch capsule daily. Nitrofurant Yes [id number] 100mg Take 1 Univers oin&Nit. 5-10 capsule by ity o f [place] 00:[place]: mouth [place] ([place] 00 (two) Medical 100 mg times Branch capsule daily. Nitrofurant Yes [id number] 100mg Take 1 Univers oin&Nit. 5-10 capsule by ity o f [place] 00:[place]: mouth [place] ([place] 00 (two) Medical 100 mg times Branch capsule daily. Nitrofurant Yes [id number] 100mg Take 1 Univers oin&Nit. 5-10 capsule by ity o f [place]: mouth [place] ([place] 00 (two) Medical 100 mg times Branch capsule daily. Nitrofurant Yes [id number] 100mg Take 1 Univers oin&Nit. 5-10 capsule by ity o [place]: mouth [place] ([place] 00 (two) Medical 100 mg times Branch capsule daily. Nitrofurant Yes [id number] 100mg Take 1 Univers oin&Nit. 5-10 capsule by ity o [place]: mouth [place] ([place] 00 (two) Medical 100 mg times Branch capsule daily. Nitrofurant Yes [id number] 100mg Take 1 Univers oin&Nit. 5-10 capsule by ity o f [place] 00:[place]: mouth [place] ([place] 00 (two) Medical 100 mg times Branch capsule daily. Nitrofurant Yes [id number] 100mg Take 1 Univers oin&Nit. 5-10 capsule by ity o f [place] 00:[place]: mouth [place] ([place] 00 (two) Medical 100 mg times Branch capsule daily. Nitrofurant 2018-0 Yes [id number] 100mg Take 1 Univers oin&Nit. 5-10 capsule by ity o f [place] 00[place]: mouth [place] ([place] 00 (two) Medical 100 mg times Branch capsule daily. Nitrofurant 2018- Yes [id number] 100mg Take 1 Univers oin&Nit. 5-10 capsule by ity o f [place]: mouth [place] ([place] 00 (two) Medical 100 mg times Branch capsule daily. Nitrofurant 2018- Yes [id number] 100mg Take 1 Univers oin&Nit. 5-10 capsule by ity o f [place]: mouth [place] ([place] 00 (two) Medical 100 mg times Branch capsule daily. Nitrofurant 2018- Yes [id number] 100mg Take 1 Univers oin&Nit. 5-10 capsule by ity o f [place] 00:[place]: mouth [place] ([place] 00 (two) Medical 100 mg times Branch capsule daily. Nitrofurant 2018- Yes [id number] 100mg Take 1 Univers oin&Nit. 5-10 capsule by ity o f [place] 00[place]: mouth [place] ([place] 00 (two) Medical 100 mg times Branch capsule daily. Nitrofurant 2018-0 Yes [id number] 100mg Take 1 Univers oin&Nit. 5-10 capsule by ity o f [place] 00:[place]: mouth [place] ([place] 00 (two) Medical 100 mg times Branch capsule daily. Nitrofurant 2018-0 Yes [id number] 100mg Take 1 Univers oin&Nit. 5-10 capsule by ity o f [place] 00:[place]: mouth [place] ([place] 00 (two) Medical 100 mg times Branch capsule daily. Nitrofurant 2018-0 Yes [id number] 100mg Take 1 Univers oin&Nit. 5-10 capsule by ity o f [place] 00:[place]: mouth [place] ([place]CR[place] 00 (two) Medical 100 mg times Branch capsule daily. Nitrofurant Yes [id number] 100mg Take 1 Univers oin&Nit. 5-10 capsule by ity o f [place] 00:[place]: mouth [place] ([place]CR[place] 00 (two) Medical 100 mg times Branch capsule daily. Nitrofurant Yes [id number] 100mg Take 1 Univers oin&Nit. 5-10 capsule by ity o f [place] 00:[place]: mouth [place] ([place] 00 (two) Medical 100 mg times Branch capsule daily. Nitrofurant Yes [id number] 100mg Take 1 Univers oin&Nit. 5-10 capsule by ity o f [place] 00:[place]: mouth [place] ([place] 00 (two) Medical 100 mg times Branch capsule daily. Nitrofurant Yes [id number] 100mg Take 1 Univers oin&Nit. 5-10 capsule by ity o f [place] 00:00: mouth [place] ([place]CR[place] 00 (two) Medical 100 mg times Branch capsule daily. Nitrofurant Yes [id number] 100mg Take 1 Univers oin&Nit. 5-10 capsule by ity o f [place] 00:[place]: mouth [place] ([place] 00 (two) Medical 100 mg times Branch capsule daily. Nitrofurant Yes [id number] 100mg Take 1 Univers oin&Nit. 5-10 capsule by ity o f [place] 00:[place]: mouth [place] ([place]CR[place] 00 (two) Medical 100 mg times Branch capsule daily. Nitrofurant Yes [id number] 100mg Take 1 Univers oin&Nit. 5-10 capsule by ity o f [place] 00:[place]: mouth [place] ([place] 00 (two) Medical 100 mg times Branch capsule daily. 2019 Yes Take by Unive rs vit/iron 5-07 mouth. ity of fum/folic 15:25: [facility] 30 Medical ( 1 Branch + 1 ORAL) 2019 Yes Take by Unive rs vit/iron 5-07 mouth. ity of fum/folic 15:25: [facility] 30 Medical ( 1 Branch + 1 ORAL) 2019-0 Yes Take by Unive rs vit/iron 5-07 mouth. ity of fum/folic 15:25: [place] [address] Medical ( 1 Branch + 1 ORAL) 2019-0 Yes Take by Unive rs vit/iron 5-07 mouth. ity of fum/folic 15:25: [place] [address] Medical ( 1 Branch + 1 ORAL) 2019-0 Yes Take by Unive rs vit/iron 5-07 mouth. ity of fum/folic 15:25: [place] [address] Medical ( 1 Branch + 1 ORAL) 2019-0 Yes Take by Unive rs vit/iron 5-07 mouth. ity of fum/folic 15:25: [place] [address] Medical ( 1 Branch + 1 ORAL) 2019-0 Yes Take by Unive rs vit/iron 5-07 mouth. ity of fum/folic 15:25: [place] [address] Medical ( 1 Branch + 1 ORAL) 2019-0 Yes Take by Unive rs vit/iron 5-07 mouth. ity of fum/folic 15:25: [address] ( 1 Branch + 1 ORAL) 2019-0 Yes Take by Unive rs vit/iron 5-07 mouth. ity of fum/folic 15:25: [address] ( 1 Branch + 1 ORAL) 2019-0 Yes Take by Unive rs vit/iron 5-07 mouth. ity of fum/folic 15:25: [place] [address] Medical ( 1 Branch + 1 ORAL) 2019-0 Yes Take by Unive rs vit/iron 5-07 mouth. ity of fum/folic 15:25: [address] ( 1 Branch + 1 ORAL) 2019-0 Yes Take by Unive rs vit/iron 5-07 mouth. ity of fum/folic 15:25: [place] [address] Medical ( 1 Branch + 1 ORAL) 2019-0 Yes Take by Unive rs vit/iron 5-07 mouth. ity of fum/folic 15:25: [place] [address] Medical ( 1 Branch + 1 ORAL) 2019-0 Yes Take by Unive rs vit/iron 5-07 mouth. ity of fum/folic 15:25: [place] [address] Medical ( 1 Branch + 1 ORAL) 2019-0 Yes Take by Unive rs vit/iron 5-07 mouth. ity of fum/folic 15:25: [place] [facility] 30 Medical ( 1 Branch + 1 ORAL) 2019-0 Yes Take by Unive rs vit/iron 5-07 mouth. ity of fum/folic 15:25: [place] [facility] 30 Medical ( 1 Branch + 1 ORAL) 2019-0 Yes Take by Unive rs vit/iron 5-07 mouth. ity of fum/folic 15:25: [facility] 30 Medical ( 1 Branch + 1 ORAL) 2019-0 Yes Take by Unive rs vit/iron 5-07 mouth. ity of fum/folic 15:25: [facility] 30 Medical ( 1 Branch + 1 ORAL) Immunizations Ordered Filled Immunization Date Status Comments [facility] e Immunization Name Name HPV9 2019-11-08 Completed University of 00:00:00 [facility] HPV9 2019-11-08 Completed University of 00:00:00 [facility] HPV9 2019-11-08 Completed University of 00:00:00 [facility] HPV9 2019-11-08 Completed University of 00:00:00 [facility] HPV9 2019-11-08 Completed University of 00:00:00 [facility] Tdap 2019-06-17 Completed University of 00:00:00 [facility] Influenza Virus 2019-06-17 Completed Universit y of Vaccine Quad .5 mL 00:00:00 [facility] 6+ MO Branch Tdap 2019-06-17 Completed University of 00:00:00 [facility] Influenza Virus 2019-06-17 Completed Universit y of Vaccine [place] .5 mL 00:00:00 [facility] 6+ MO Branch Tdap 2019-06-17 Completed University of 00:00:00 [facility] Influenza Virus 2019-06-17 Completed Universit y of Vaccine [place] .5 mL 00:00:00 [facility] 6+ MO Branch Tdap 2019-06-17 Completed University of 00:00:00 [facility] Influenza Virus 2019-06-17 Completed Universit y of Vaccine [place] .5 mL 00:00:00 [facility] 6+ MO Branch TDAP 2019-06-17 Completed University of 00:00:00 [facility] Influenza Virus 2019-06-17 Completed Universit y of Vaccine [place] .5 mL 00:00:00 [facility] 6+ MO [place] Vital Signs Vital Name Observation Time Observation Value Comments Source HEIGHT 2020-11-04 15:09:00 167.6 cm WEIGHT 2020-11-04 15:09:00 63.504 kg Systolic blood 2019-11-08 21:04:00 113 mm[Hg] Univer sity of pressure [place] [facility] Diastolic blood 2019-11-08 21:04:00 69 mm[Hg] Unive rsity of pressure [place] [facility] Heart rate 2019-11-08 21:04:00 70 /min Universi ty of [facility] Body temperature 2019-11-08 21:04:00 36.56 Katherine Univ ersity of [facility] Respiratory rate 2019-11-08 21:04:00 18 /min Univ ersity of [place] [facility] Branch Body height 2019-11-08 21:04:00 167.6 cm Universi ty of [facility] Body weight 2019-11-08 21:04:00 65.681 kg Universi ty of [place] [facility] Branch BMI 2019-11-08 21:04:00 23.37 kg/m2 Universi ty of [facility] Systolic blood 2019-06-03 13:11:00 115 mm[Hg] Univer sity of pressure [facility] Diastolic blood 2019-06-03 13:11:00 67 mm[Hg] Unive rsity of pressure [facility] Heart rate 2019-06-03 13:11:00 85 /min Universi ty of [facility] Body temperature 2019-06-03 13:11:00 36.44 Katherine Univ ersity of [facility] Respiratory rate 2019-06-03 13:11:00 16 /min Univ ersity of [facility] Body height 2019-06-03 13:11:00 167.6 cm Universi ty of [place] [facility] [place] Body weight 2019-06-03 13:11:00 70.449 kg Universi ty of [place] [facility] BMI 2019-06-03 13:11:00 25.07 kg/m2 Universi ty of [facility] Heart rate 2019-05-24 15:00:00 75 /min Universi ty of [facility] Oxygen saturation in 2019-05-24 15:00:00 100 /min [facility] Arterial blood by [facility] Pulse oximetry Branch Systolic blood 2019-05-24 12:30:00 107 mm[Hg] Univer sity of pressure [facility] Branch Diastolic blood 2019-05-24 12:30:00 61 mm[Hg] Unive rsity of pressure [facility] Body temperature 2019-05-24 12:30:00 36.44 Katherine Univ ersity of [facility] Respiratory rate 2019-05-24 12:30:00 16 /min Univ ersity of [facility] Body height 2019-05-24 02:02:00 167.6 cm Universi ty of [facility] Body weight 2019-05-24 02:02:00 69.4 kg Universi ty of [place] [facility] BMI 2019-05-24 02:02:00 24.69 kg/m2 Universi ty of [facility] Systolic blood 2019-05-06 15:58:00 119 mm[Hg] Univer sity of pressure [facility] Diastolic blood 2019-05-06 15:58:00 67 mm[Hg] Unive rsity of pressure [facility] Heart rate 2019-05-06 15:58:00 81 /min Universi ty of [facility] Body temperature 2019-05-06 15:58:00 36.22 Katherine Univ ersity of [place] [facility] Respiratory rate 2019-05-06 15:58:00 16 /min Univ ersity of [facility] Body height 2019-05-06 15:58:00 167.6 cm Universi ty of [facility] Body weight 2019-05-06 15:58:00 69.57 kg Universi ty of [facility] BMI 2019-05-06 15:58:00 24.76 kg/m2 Universi ty of [facility] Systolic blood 2019-04-08 16:04:00 118 mm[Hg] Univer sity of pressure [facility] Diastolic blood 2019-04-08 16:04:00 68 mm[Hg] Unive rsity of pressure [facility] Heart rate 2019-04-08 16:04:00 97 /min Universi ty of [facility] Body temperature 2019-04-08 16:04:00 36.44 Katherine Univ ersity of [facility] Respiratory rate 2019-04-08 16:04:00 16 /min Univ ersity of [facility] Body height 2019-04-08 16:04:00 167.6 cm Universi ty of [place] [facility] Body weight 2019-04-08 16:04:00 66.395 kg Universi ty of [place] [facility] BMI 2019-04-08 16:04:00 23.63 kg/m2 Universi ty of [place] [facility] Procedures Procedure Date / Time Performing Clinician Source Performed CBC WITH DIFFERENTIAL 2019-11-08:37:00 Mira [facility] HIV 1/2 AG-AB WITH 2019-11-08 21:37:00 Mira [facility] REFLEX [facility] PAP SMEAR-LIQUID 2019-11-08 21:37:00 Mira, [facility] BASED-CP [facility] GARDASIL 9 (HPV 9V) 2019-11-08 21:18:22 Mira [facility] VACCINE [facility] POCT URINALYSIS GLUCOSE 2019-06-03 13:12:00 Anjelica Wren [facility] CBC WITH DIFFERENTIAL 2019-05-24 04:19:00 Lillian Saleem [facility] ADC ONLY - FERN TEST 2019-05-24 04:19:00 Lillian Saleem [facility] TYPE AND SCREEN 2019-05-24 04:15:00 Lillian Saleem [place] o f [facility] ASSIGNMENT OF BENEFITS 2019-05-24 01:22:20 Doctor Unassigned, No [facility] NOTICE OF PRIVACY 2019-05-24 01:21:45 Doctor Unassigned, No [facility] PRACTICES [facility] CONSENT/REFUSAL FOR 2019-05-24 01:21:32 [facility] POCT URINALYSIS W/O 2019-05-06 16:00:00 Anjelica Wren Uni versity of [facility] CONSENT FOR 2019-04-28 05:01:00 Doctor Unassigned, No [facility] AMNIOCENTESIS [facility] POCT URINALYSIS W/O 2019-04-08 16:14:00 Anjelica Wren Uni versity of [facility] Encounters Start End Encounter Admission Attending Care Care Encounter Source Date/Time Date/Time Type Type Clinicians Facility Department ID 2020-12-04 2020-12-04 Patient Karan [facility] [id number] Univers 00:00:00 00:00:00 Outreach [facility] [id number] i ty of formerly [facility] [id number] [place] [id number] [facility] [address] [place] [address] 2020-11-04 2020-11-04 Emergency ER SLS Emergency [id number] SLS 14:45:00 14:45:00 2019-12-26 2019-12-26 Outpatient R [facility] [id number] Univers 09:30:00 09:30:00 [id number] ity of [facility] 2019-12-09 2019-12-09 Telephone Ilene-Schulter [facility] [id number] Univers 00:00:00 00:00:00 Cayla hammonds MANAGER UTILIZATION REVIEW [id number] ity of [facility] [id number] [place] MATERNAL [phone] Med ical & CHILD [address] [place] [address] 2019-12-09 2019-12-09 Patient Sammie [facility] [id number] Univers 00:00:00 00:00:00 Secure jay Suh MANAGER UTILIZATION REVIEW [id number] ity of [facility] [id number] [place] MATERNAL [phone] Med ical & CHILD [address] [facility] 2019-12-06 2019-12-06 Outpatient R [facility] [id number] Univers 09:00:00 09:00:00 [id number] ity of [facility] 2019-12-06 2019-12-06 Outpatient R ILENE-OLE [facility] [id number] Univers 09:00:00 09:00:00 US CAYLA it y of [facility] 2019-11-08 2019-11-08 Office Ilene-Ole [facility] 1.2.840.114 [id number] Univers 14:56:09 15:45:39 Visit us Cayla MANAGER UTILIZATION REVIEW [id number] ity of [facility] [id number] [place] MATERNAL [phone] [facility] ical & CHILD [address] [place] [address] 2019-11-08 2019-11-08 Outpatient R ILENE-OLE [facility] [id number] Univers 15:00:00 15:00:00 US, CAYLA wilkins y of [facility] 2019-06-03 2019-06-03 Routine [place], [facility] [id number] Univers 07:57:52 08:34:46 Anjelica Adamson MANAGER UTILIZATION REVIEW [id number] ity of Visit REGIONAL [id number] [place] MATERNAL [id number] [facility] Ohiol & CHILD [address] [place] [address] 2019-05-23 2019-05-24 [facility] Lillian Saleem [facility] 1.2.840.114 [id number] Univers 20:20:00 10:25:00 Encounter [facility] [id number] ity of [place]2.[place] [phone] [address] 2019-05-11 2019-05-11 Telephone Marilou Phillips UNIVERSIT 1.2.840.114 [id number] Univers 00:00:00 00:00:00 [facility] [id number] ity of CLINICS 4[place].7.2.[place] [id number] [address] 2019-05-06 2019-05-06 Routine [place], [facility] [id number] Univers 10:47:37 11:20:42 Anjelica Adamson MANAGER UTILIZATION REVIEW [id number] ity of Visit REGIONAL 4.2.7.2.686 [place] MATERNAL [phone] [facility] & CHILD [address] [place] [address] 2019-04-28 2019-04-28 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, [facility] Mf Usg Room UNIVERSIT 1 .2.840.114 [id number] Univers 10:43:43 11:58:43 Visit Marilou Phillips [facility] 350.1.1 3.10 ity of CL[place]ICS 4[place].2.[place] [id number] [address] 2019-04-28 2019-04-28 Orders Doctor DE LA O 1.2.840.114 [id number] Univers 00:00:00 00:00:00 Only Unassigned, NELSON 350.1.13.10 ity of [place] [facility] 4.2.7.2.686 [place] as [phone] [facility] 009 Branch 2019-04-19 2019-04-19 Telephone ALIYAH Wright 1.2.840.114 [id number] Univers 00:00:00 00:00:00 Miriam Boswell [facility] [id number] ity of [facility] 4.2.7.2.[place] [id number] [facility] 161 Branch 2019-04-18 2019-04-18 Office Rocky Melissa [facility] [id number] [id number] Univers 12:36:31 12:52:29 Visit Patrick Hurt MANAGER UTILIZATION REVIEW [id number] ity of [facility] 4.2.7.2.686 [place] MATERNAL [phone] Med ical & CHILD [address] [place] [address] 2019-04-18 2019-04-18 Harlan Marilou Pihllips [facility] 1.2.840.114 [id number] Univers 00:00:00 00:00:00 Management Flavia MANAGER UTILIZATION REVIEW [id number] ity of [facility] 42.7.2.686 [place] MATERNAL [phone] [facility] ical & CHILD [address] [place] [address] 2019-04-18 2019-04-18 Marilou Langford [facility] 1.2.840.114 [id number] Univers 00:00:00 00:00:00 Management Flavia MANAGER UTILIZATION REVIEW [id number] ity of [facility] 42.7.2.686 [place] MATERNAL [id number] [facility] ical & CHILD [address] [place] [address] 2019-04-13 2019-04-13 Abstract Kevinhannah [facility] 1.2.840.114 [id number] Univers 00:00:00 00:00:00 Anjelica C MANAGER UTILIZATION REVIEW 350.1.13.10 ity of [facility] 42.7.2.686 [place] MATERNAL [phone] [facility] ical & CHILD [address] [place] [address] 2019-04-13 2019-04-13 Telephone Siena [facility] 1.2.840.114 [id number] Univers 00:00:00 00:00:00 Anjelica C MANAGER UTILIZATION REVIEW 350.1.13.10 ity of REGIONAL 4.2.7.2.686 [place] MATERNAL [id number] [facility] & CHILD 107 [facility] 2019-04-13 2019-04-13 Telephone [facility] 1.2.840.114 [id number] Univers 00:00:00 00:00:00 Anjelica Adamson MANAGER UTILIZATION REVIEW 350.1.13.10 ity of REGIONAL 4.2.7.2.686 [place] MATERNAL [id number] [facility] & CHILD [address] [place] [address] 2019-04-11 2019-04-11 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 Ultrasound, [facility] 1.2 .840.114 [id number] [facility] 09:43:52 11:50:03 Visit Carter Lacey MANAGER UTILIZATION REVIEW 350.1.13.10 ity of REGIONAL 4.2.7.2.686 [place] MATERNAL [id number] [facility] & CHILD 369 [facility] 2019-04-08 2019-04-08 Routine [facility], [facility] [id number] [facility] 10:51:18 11:47:59 Anjelica Adamson MANAGER UTILIZATION REVIEW [id number] ity of Visit REGIONAL 4.2.7.2.686 [place] MATERNAL [phone] [facility] & CHILD [address] [place] [address] Results Test Description Test Time Test Comments Results Result Sour e Comments RAD, SHOULDER, 2020-11-04 Reason for COMPLETE (MIN 2 16:16:00 exam:->SHOULDER VIEWS), RIGHT [facility] : 2000 Sex: F *FINAL REPORT RAD, SHOULDER, COMPLETE (MIN 2 VIEWS), RIGHT COMPARISON: None INDICATION: SHOULDER PAIN FINDINGS: AP views in internal and external rotation and an axillary "Y" view of the right shoulder. Osseous structures: No fracture.Joint spaces: Intact without malalignment. No significant degenerative changes.Soft tissues: Unremarkable IMPRESSION: No acute abnormality of the right shoulder. Signed: JR Saldaña Robert MDReport Verified Date/Time: 11/04/2020 16:16:30 Reading Location: [facility] C013V Neuro Reading Room 1/2 AG-AB WITH REFLEX 2019-11-09 09:08:00 Test Item Value Reference Range Interpretation Comme nts HIV Semi-quantitative (test code = Negative Negative 86301-0) GÓMEZ (test code = GÓMEZ) Non-reactive for HIV-1 antigen and HIV-1/HIV-2 antibodies. ?No laboratory evidence of HIV infection. ?Repeat in 2-4 weeks if acute HIV infection is suspected. [facility] WITH [id number] 09:08:00 Test Item Value Reference Range Interpretation Comments HIV Negative Negative Semi-quantitative (test code = 98302-7) GÓMEZ (test code = Non-reactive for HIV-1 GÓMEZ) antigen and HIV-1/HIV-2 antibodies. ?No laboratory evidence of HIV infection. ?Repeat in 2-4 weeks if acute HIV infection is suspected. [facility] WITH [id number] 06:03:00 Test Item Value Reference Range Interpretation Comments WBC (test code = See_Comment [Automated message] 6690-2) The system [employer] generated this result transmitted ref erence range: 4.30 - 1 1.10 10*3/?L. The re ference range was not u sed to interpret this result as normal/abnor mal. RBC (test code = See_Comment [Automated message] 789-8) The system [employer] generated this result transmitted ref erence range: 3.93 - 5 .25 10*6/?L. The re ference range was not u sed to interpret this result as normal/abnor mal. HGB (test code = 12.5 g/dL 11.6-15 718-7) HCT (test code = 38.9 % 35.7-45.2 4544-3) MCV (test code = 95.1 fL 80.6-95.5 787-2) MCH (test code = 30.6 pg 25.9-32.8 785-6) MCHC (test code = 32.1 g/dL 31.6-35.1 786-4) RDW-SD (test code 49.4 fL 39-49.9 = 19999-0) RDW-CV (test code 14.2 % 12-15.5 = 788-0) PLT (test code = See_Comment [Automated message] 777-3) The system [employer] h generated this result transmitted ref erence range: 166 - 35 8 10*3/?L. The re ference range was not u sed to interpret this result as normal/abnor mal. MPV (test code = 11.5 fL 9.5-12.9 89472-1) NRBC/100 WBC (test See_Comment [Automat ed message] code = 4705976733) The syste m which generated this result transmitted ref erence range: 0.0 - 10 .0 /100 WBCs. The refer ence range was not u sed to interpret this result as normal/abnor mal. NRBC x10^3 (test <0.01 See_Comment [Automated message] code = 9576472079) The syste m which generated this result transmitted ref erence range: 10*3/?L. The reference range was not used to interpr et this result as normal/abnormal . GRAN MAT (NEUT) % 55.7 % (test code = 770-8) IMM GRAN % (test 0.20 % code = 4632222395) LYMPH % (test code 33.5 % = 736-9) MONO % (test code 7.8 % = 5905-5) EOS % (test code = 2.6 % 713-8) BASO % (test code 0.2 % = 706-2) GRAN MAT 2.99 10*3/uL 1.88-7.09 x10^3(ANC) (test code = 5113718841) IMM GRAN x10^3 <0.03 0-0.06 (test code = 2946849021) LYMPH x10^3 (test 1.80 10*3/uL 1.32-3.29 code = 731-0) MONO x10^3 (test 0.42 10*3/uL 0.33-0.92 code = 742-7) EOS x10^3 (test 0.14 10*3/uL 0.03-0.39 code = 711-2) BASO x10^3 (test <0.03 0.01-0.07 code = 704-7) [facility] WITH [id number] 06:03:00 Test Item Value Reference Range Interpretation Comments WBC (test code = See_Comment [Automated message] 2790-2) The system [employer] generated this result transmitted ref erence range: 4.30 - 1 1.10 10*3/?L. The re ference range was not u sed to interpret this result as normal/abnor mal. RBC (test code = See_Comment [Automated message] 559-8) The system [employer] generated this result transmitted ref erence range: 3.93 - 5 .25 10*6/?L. The re ference range was not u sed to interpret this result as normal/abnor mal. HGB (test code = 12.5 g/dL 11.6-15 718-7) HCT (test code = 38.9 % 35.7-45.2 4544-3) MCV (test code = 95.1 fL 80.6-95.5 787-2) MCH (test code = 30.6 pg 25.9-32.8 785-6) MCHC (test code = 32.1 g/dL 31.6-35.1 786-4) RDW-SD (test code 49.4 fL 39-49.9 = 90095-6) RDW-CV (test code 14.2 % 12-15.5 = 788-0) PLT (test code = See_Comment [Automated message] 297-3) The system [employer] generated this result transmitted ref erence range: 166 - 35 8 10*3/?L. The re ference range was not u sed to interpret this result as normal/abnor mal. MPV (test code = 11.5 fL 9.5-12.9 60500-5) NRBC/100 WBC (test See_Comment [Automat ed message] code = 4904559750) The syste m which generated this result transmitted ref erence range: 0.0 - 10 .0 /100 WBCs. The refer ence range was not u sed to interpret this result as normal/abnor mal. NRBC x10^3 (test <0.01 See_Comment [Automated message] code = 0735347219) The syste m which generated this result transmitted ref erence range: 10*3/?L. The reference range was not used to interpr et this result as normal/abnormal . GRAN MAT (NEUT) % 55.7 % (test code = 770-8) IMM GRAN % (test 0.20 % code = 7719782857) LYMPH % (test code 33.5 % = 736-9) MONO % (test code 7.8 % = 5905-5) EOS % (test code = 2.6 % 713-8) BASO % (test code 0.2 % = 706-2) GRAN MAT 2.99 10*3/uL 1.88-7.09 x10^3(ANC) (test code = 5135724603) IMM GRAN x10^3 <0.03 0-0.06 (test code = 7245833530) LYMPH x10^3 (test 1.80 10*3/uL 1.32-3.29 code = 731-0) MONO x10^3 (test 0.42 10*3/uL 0.33-0.92 code = 742-7) EOS x10^3 (test 0.14 10*3/uL 0.03-0.39 code = 711-2) BASO x10^3 (test <0.03 0.01-0.07 code = 704-7) [facility] URINALYSIS GLUCOSE & PROTEIN 2019-06-03 13:12:00 Test Item Value Reference Range Interpretation Comments POCT U PROT (test code = 3259) trace Negative - Negative POCT U GLU (test code = 3256) neg Negative - Negative [facility] URINALYSIS GLUCOSE & PROTEIN 2019-06-03 13:12:00 Test Item Value Reference Range Interpretation Comments POCT U PROT (test code = 3259) trace Negative - Negative POCT U GLU (test code = 3256) neg Negative - [facility] 13:12:00 Test Item Value Reference Range Interpretation Comments POCT U PROT (test code = 3259) trace Negative - Negative POCT U GLU (test code = 3256) neg Negative - [facility] 2019-06-03 13:12:00 Test Item Value Reference Range Interpretation Comments POCT U PROT (test code = 3259) trace Negative - Negative POCT U GLU (test code = 3256) neg Negative - Negative [facility] - ONCE [id number] 06:08:45 Test Item Value Reference Range Interpretation Comments ABO & RH (test code B Positive Performe d at [facility] = 20) Laboratory Serv [facility] [place] [address] Free: [phone] A No. [id number] IAT (test code = Negative Performed a t [facility] 1185) Laboratory Serv [facility] [place] [address] Free: [phone] A No. [id number] [facility] CLC OR [facility] ONLY - WET [id number] 05:24:00 Test Item Value Reference Range Interpretation Comments Wet Prep (test code = Moderate Organisms seen 4513775343) [facility] ONLY - FERN [id number] 04:52:00 Test Item Value Reference Range Interpretation Comments Fern Test (test code = 8731588223) Negative [facility] WITH [id number] 04:31:00 Test Item Value Reference Range Interpretation Comments WBC (test code = See_Comment [Automated 6690-2) message] The sy stem which generated this result transmitted reference range : 4.30 - 11.10 10*3/?L. The reference range was not used to interpret this result as normal/abnormal . RBC (test code = See_Comment L [Automated 789-8) message] The sy stem which generated this result transmitted reference range : 3.93 - 5.25 10*6/?L. The reference range was not used to interpret this result as normal/abnormal . HGB (test code = 9.4 g/dL 11.6-15 L 718-7) HCT (test code = 28.6 % 35.7-45.2 L 4544-3) MCV (test code = 96.9 fL 80.6-95.5 H 787-2) MCH (test code = 31.9 pg 25.9-32.8 785-6) MCHC (test code = 32.9 g/dL 31.6-35.1 786-4) RDW-SD (test code = 44.6 fL 39-49.9 65388-1) RDW-CV (test code = 12.6 % 12-15.5 788-0) PLT (test code = See_Comment [Automated 777-3) message] The sy stem which generated this result transmitted reference range : 166 - 358 10*3/ ?L. The reference r kirt was not used to interpret this result as normal/abnormal . MPV (test code = 11.1 fL 9.5-12.9 73024-7) NRBC/100 WBC (test See_Comment [Automat ed code = 4670531506) message] The system which generated this result transmitted reference range : 0.0 - 10.0 /100 WBCs. The refer ence range was not u sed to interpret th is result as normal/abnormal . NRBC x10^3 (test code <0.01 See_Comment [Auto mated = 6205497109) message] The s ystem which generated this result transmitted reference range : 10*3/?L. The reference range was not used to interpret this result as normal/abnormal . GRAN MAT (NEUT) % 63.6 % (test code = 770-8) IMM GRAN % (test code 0.50 % = 2827760929) LYMPH % (test code = 21.1 % 736-9) MONO % (test code = 11.6 % 5905-5) EOS % (test code = 3.1 % 713-8) BASO % (test code = 0.1 % 706-2) GRAN MAT x10^3(ANC) 5.13 10*3/uL 1.88-7.09 (test code = 6372634659) IMM GRAN x10^3 (test 0.04 10*3/uL 0-0.06 code = 4029836361) LYMPH x10^3 (test code 1.70 10*3/uL 1.32-3.29 = 731-0) MONO x10^3 (test code 0.94 10*3/uL 0.33-0.92 H = 742-7) EOS x10^3 (test code = 0.25 10*3/uL 0.03-0.39 711-2) BASO x10^3 (test code <0.03 0.01-0.07 = 704-7) Lab Interpretation Abnormal (test code = 57404-4) [facility] URINALYSIS W/O SPECIFIC [id number] 16:00:00 Test Item Value Reference Range Interpretation Comments POCT PH U (test code = 3254) . 5-8 POCT U LEUK EST (test code = 3263) . Negative - Negative POCT U NIT (test code = 3262) . Negative - Negative POCT U PROT (test code = 3259) Trace Negative - Negative POCT U GLU (test code = 3256) Neg Negative - Negative POCT U KETONE (test code = 3258) . Negative - Negative POCT U BLD (test code = 3257) . Negative - Negative [facility] URINALYSIS W/O SPECIFIC [id number] 16:14:00 Test Item Value Reference Range Interpretation Comments POCT PH U (test code = 3254) . 5-8 POCT U LEUK EST (test code = 3263) . Negative - Negative POCT U NIT (test code = 3262) . Negative - Negative POCT U PROT (test code = 3259) Trace Negative - Negative POCT U GLU (test code = 3256) Neg Negative - Negative POCT U KETONE (test code = 3258) . Negative - Negative POCT U BLD (test code = 3257) . Negative - Negative [facility] URINALYSIS W/O SPECIFIC [id number] 16:14:00 Test Item Value Reference Range Interpretation Comments POCT PH U (test code = 3254) . 5-8 POCT U LEUK EST (test code = 3263) . Negative - Negative POCT U NIT (test code = 3262) . Negative - Negative POCT U PROT (test code = 3259) Trace Negative - Negative POCT U GLU (test code = 3256) Neg Negative - Negative POCT U KETONE (test code = 3258) . Negative - Negative POCT U BLD (test code = 3257) . Negative - [facility] [id number] 16:14:00 Test Item Value Reference Range Interpretation Comments POCT PH U (test code = 3254) . 5-8 POCT U LEUK EST (test code = 3263) . Negative - Negative POCT U NIT (test code = 3262) . Negative - Negative POCT U PROT (test code = 3259) Trace Negative - Negative POCT U GLU (test code = 3256) Neg Negative - Negative POCT U KETONE (test code = 3258) . Negative - Negative POCT U BLD (test code = 3257) . Negative - Negative [facility]
[2021-08-07 13:56] LABS: Absolute Lymphocytes (CBC) 1.7 K/uL (0.7-4.9); Basophils % 0.2 % (0-1.3); Hematocrit 36.2 % (36.0-45.0); MPV 8.8 fL (7.6-11.3); RBC Red Blood Cell Count 3.89 M/uL (3.86-4.86)
[2021-08-07 14:08] LABS: Urine Blood Negative (Negative); Urine Glucose Negative (Negative); Urine Protein Negative (Negative); Urine pH 8.5 (5.0-7.0)
[2021-08-07 14:15] LABS: ALT/SGPT 17 U/L (12-78); AST/SGOT 14 U/L (15-37); Albumin 4.1 g/dL (3.4-5.0); Alkaline Phosphatase 59 U/L (45-117); BUN Blood Urea Nitrogen 14 mg/dL (7-18); Bicarbonate 28 mmol/L (21-32); Bilirubin Direct 0.1 mg/dL (0-0.2); Bilirubin Total 0.4 mg/dL (0.2-1.0); Glucose Level 88 mg/dL (74-106); Lipase 96 U/L (73-393); Potassium 4.1 mmol/L (3.5-5.1); Protein, Total 7.5 g/dL (6.4-8.2); Sodium Level 144 mmol/L (136-145)
--- NOTE | 2021-08-07 16:24 | RAD REPORT ---
EXAM DESCRIPTION: CTAbdomen Pelvis W Contrast - 08/07/2021 4:15 pm CLINICAL HISTORY: Abdominal pain. lower abdominal pain COMPARISON: No comparisons TECHNIQUE: Biphasic CT imaging of the abdomen and pelvis was performed with 100 ml non-ionic IV cont rast. All CT scans are performed using dose optimization technique as appropriate and may include automated exposure control or mA/KV adjustment according to patient size. FINDINGS: The lung bases are clear. The liver, spleen, pancreas, adrenal glands and kidneys are within normal limits. No bowel obstruction, free air, free fluid or abscess. Moderate stool is present throughout the colon . Fluid-filled small bowel loops are present throughout the abdomen. The appendix is normal. No evid ence of significant lymphadenopathy. 3.3 cm right ovarian cyst. No suspicious bony findings. IMPRESSION: 3.3 cm right ovarian cyst.
--- NOTE | 2021-08-07 18:10 | ER ---
Nurse's Notes [facility] Name: Toyin Pimentel Age: 21 yrs Sex: Female : 2000 Arrival Date: 08/07/2021 Time: 13:10 Bed 18 Private MD: Diagnosis: Ovarian Cyst Presentation: 08/07 13:24 Chief complaint: Patient states: I began having lower abdominal pain that radiates to ld1 my pelvic area X 2-3 days. Coronavirus screen: At this time, the client does not indicate any symptoms associated with coronavirus-19. Ebola Screen: No symptoms or risks identified at this time. Initial Sepsis Screen: Does the patient meet any 2 criteria? No. Patient's initial sepsis screen is negative. Does the patient have a suspected source of infection? No. Patient's initial sepsis screen is negative. Risk Assessment: Do you want to hurt yourself or someone else? Patient reports no desire to harm self or others. Onset of symptoms was August 07, 2021. 13:24 Method Of Arrival: Ambulatory ld1 13:24 Acuity: HAYDEN 3 ld1 Triage Assessment: 13:25 General: Appears in no apparent distress. comfortable, Behavior is calm, cooperative, ld1 appropriate for age. Pain: Complains of pain in right lower quadrant and left lower quadrant Pain radiates to pelvis Pain currently is 3 out of 10 on a pain scale. at worst was 10 out of 10 on a pain scale. Quality of pain is described as crampy, Pain began suddenly, Is intermittent. EENT: No signs and/or symptoms were reported regarding the EENT system. Neuro: Level of Consciousness is awake, alert, obeys commands, Oriented to person, place, time, situation, Appropriate for age. Cardiovascular: Capillary refill < 3 seconds Patient's skin is warm and dry. Respiratory: Airway is patent Respiratory effort is even, unlabored, Respiratory pattern is regular, symmetrical. GI: Abdomen is flat, non-distended, Reports upper abdominal pain, cramping. : No signs and/or symptoms were reported regarding the genitourinary system. Derm: No signs and/or symptoms reported regarding the dermatologic system. Musculoskeletal: No signs and/or symptoms reported regarding the musculoskeletal system. 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 - Social history:: Smoking status: Patient denies any tobacco usage or history of. Patient/guardian denies using alcohol, street drugs. Screenin:00 Abuse screen: Denies threats or abuse. Denies injuries from another. sl2 17:00 Nutritional screening: No deficits noted. Tuberculosis screening: No symptoms or risk sl2 factors identified. Never had TB. Possible symptoms: None Risk factors: None. Fall Risk None identified. Assessment: 15:00 GI: Bowel sounds present X 4 quads. Abd is soft and non tender. sl2 Vital Signs: 13:24 BP 131 / 77; Pulse 82; Resp 18; Temp 98.2(O); Pulse Ox 99% on R/A; Weight 62.14 kg; ld1 Height 5 ft. 6 in. (167.64 cm); Pain 3/10; 15:00 BP 116 / 68; Pulse 66; Resp 18; Temp 98.4; Pulse Ox 100% ; sl2 17:27 BP 111 / 68; Pulse 64; Resp 16; Temp 98.5; Pulse Ox 100% on R/A; sl2 13:24 Body Mass Index 22.11 (62.14 kg, 167.64 cm) ld1 ED Course: 13:10 Patient arrived in ED. mr 13:25 Triage completed. ld1 13:25 Arm band placed on right wrist. ld1 13:33 Inserted saline lock: 20 gauge in left antecubital area, using aseptic technique. lt3 14:43 Sneha James, MADDIE is Primary Nurse. sl2 14:43 Patient placed in an exam room, on a stretcher. ll1 14:50 Gavin Cleveland PA is PHCP. jmm 14:50 Rolando Manley MD is Attending Physician. jmm 15:[address] via wheelchair. sl2 16:15 CT Abd/Pelvis - IV Contrast Only In Process Unspecified. EDMS 17:00 Patient has correct armband on for positive identification. Bed in low position. Call sl2 light in reach. Side rails up X 1. 17:00 No provider procedures requiring assistance completed. sl2 18:30 IV discontinued, intact, bleeding controlled, No redness/swelling at site. Pressure sl2 dressing applied. Administered Medications: No medications were administered Outcome: 18:09 Discharge ordered by . niki 18:47 Discharged to home ambulatory. sl2 18:47 Condition: stable 18:47 Discharge instructions given to patient, Instructed on discharge instructions, follow up and referral plans. medication usage, Demonstrated understanding of instructions, follow-up care, medications, Prescriptions given X 1. 18:48 Patient left the ED. ll1 Signatures: Dispatcher [employer] EDMS Gavin Cleveland PA PA jmm Marcus, Marilou mr Maria Elena Layne, RN RN ll1 Chelsie Stacy RN RN ld1 Sneha James RN RN sl2 Whitley Pan lt3 Corrections: (The following items were deleted from the chart) 13:26 13:25 Allergies: Aspirin; ld1 ld1 17:32 14:20 BP 116 / 68; Pulse 66bpm; Resp 18bpm; Pulse Ox 100%; Temp 98.4F; sl2 sl2
--- NOTE | 2021-08-07 18:11 | EDPHYS ---
Physician Documentation [facility] Name: Toyin Pimentel Age: 21 yrs Sex: Female : 2000 Arrival Date: 08/07/2021 Time: 13:10 Bed 18 Private MD: ED Physician Rolando Manley HPI: 08/07 13:30 This 21 yrs old Black Female presents to ER via Ambulatory with complaints of Abdominal jmm Pain, Pelvic Pain. 13:30 The patient presents with abdominal pain. Onset: The symptoms/episode began/occurred jmm gradually. The symptoms do not radiate. Associated signs and symptoms: Pertinent negatives: nausea and vomiting, diarrhea. The symptoms are described as achy. Modifying factors: The symptoms are alleviated by nothing, the symptoms are aggravated by nothing. The patient has not experienced similar symptoms in the past. 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 - Social history:: Smoking status: Patient denies any tobacco usage or history of. Patient/guardian denies using alcohol, street drugs. ROS: 13:30 Constitutional: Negative for fever, chills, and weight loss, Cardiovascular: Negative jmm for chest pain, palpitations, and edema, Respiratory: Negative for shortness of breath, cough, wheezing, and pleuritic chest pain. 13:30 Abdomen/GI: Positive for abdominal pain. 13:30 All other systems are negative. Exam: 13:30 Constitutional: This is a well developed, well nourished patient who is awake, alert, jmm and in no acute distress. Head/Face: atraumatic. Eyes: EOMI, no conjunctival erythema appreciated ENT: Moist Mucus Membranes Neck: Trachea midline, Supple Chest/axilla: Normal chest wall appearance and motion. Cardiovascular: Regular rate and rhythm. No edema appreciated Respiratory: Normal respirations, no respiratory distress appreciated 13:30 Abdomen/GI: Inspection: abdomen appears normal, Bowel sounds: normal, Palpation: soft, moderate abdominal tenderness, in the right lower quadrant. 13:30 Back: ROM is normal. 13:30 Musculoskeletal/extremity: ROM: intact in all extremities. 13:30 Skin: Appearance: Color: normal in color. 13:30 Neuro: Orientation: is normal, Mentation: is normal, Memory: is normal. 13:30 Psych: Behavior/mood is pleasant, cooperative. Vital Signs: 13:24 BP 131 / 77; Pulse 82; Resp 18; Temp 98.2(O); Pulse Ox 99% on R/A; Weight 62.14 kg; ld1 Height 5 ft. 6 in. (167.64 cm); Pain 3/10; 15:00 BP 116 / 68; Pulse 66; Resp 18; Temp 98.4; Pulse Ox 100% ; sl2 17:27 BP 111 / 68; Pulse 64; Resp 16; Temp 98.5; Pulse Ox 100% on R/A; sl2 13:24 Body Mass Index 22.11 (62.14 kg, 167.64 cm) ld1 MDM: 15:09 Patient medically screened. [facility] 18:07 Data reviewed: vital signs, nurses notes. Counseling: I had a detailed discussion with niki the patient and/or guardian regarding: the historical points, exam findings, and any diagnostic results supporting the discharge/admit diagnosis, lab results, radiology results, the need for outpatient follow up, to return to the emergency department if symptoms worsen or persist or if there are any questions or concerns that arise at home. 08/07 13:30 Order name: Basic Metabolic Panel; Complete Time: 14:51 [facility] 08/07 13:30 Order name: CBC with Diff; Complete Time: 14:51 [facility] 08/07 13:30 Order name: Hepatic Function; Complete Time: 14:51 [facility] 08/07 13:30 Order name: Lipase; Complete Time: 14:51 [facility] 08/07 14:07 Order name: Urine Dipstick-Ancillary; Complete Time: 14:51 [facility] 08/07 15:12 Order name: CT Abd/Pelvis - IV Contrast Only; Complete Time: 16:30 [facility] 08/07 13:30 Order name: IV Saline Lock; Complete Time: 15:57 [facility] 08/07 13:30 Order name: Labs collected and sent; Complete Time: 15:57 [facility] 08/07 13:30 Order name: Urine Dipstick-Ancillary (obtain specimen); Complete Time: 15:57 ld1 08/07 15:10 Order name: Urine Test (obtain specimen); Complete Time: 15:57 [facility] Administered Medications: No medications were administered Disposition: 19:00 Co-signature as Attending Physician, Rolando Manley MD. rn Disposition Summary: 08/07/21 18:09 Discharge Ordered Location: Home [facility] Condition: Stable [facility] Diagnosis - Ovarian Cyst [facility] Followup: [facility] - With: Private Physician - When: 2 - 3 days - Reason: Recheck today's complaints, Continuance of care, Re-evaluation by your physician Discharge Instructions: - Discharge Summary Sheet [facility] - Ovarian Cyst [facility] Forms: - Medication Reconciliation Form [facility] - Thank You Letter [facility] - Antibiotic Education [facility] - Prescription Opioid Use [facility] Prescriptions: - Ibuprofen 800 mg Oral Tablet - take 1 tablet by ORAL route every 8 hours As needed take with food; 30 tablet; [facility] Refills: 0, Product Selection Permitted Signatures: Dispatcher [employer] EDGavin Vega PA PA [facility] Rolando Manley MD MD rn Dibbern, Lauren, RN RN ld1 Corrections: (The following items were deleted from the chart) 13:26 13:25 Allergies: Aspirin; ld1 ld1
[2021-08-07 19:06] VITALS: O2SAT 100
[2021-08-07 19:07] VITALS: BP 111/68; TEMP 98.5
== END 2021-08-07 18:48 | disposition home or self-care (01) ==
LOC: ER 13:00
DX: N83.209 Unspecified ovarian cyst, unspecified side (principal)
CPT/HCPCS: 85025; 80048; 36415; 80076; 81003; 83690; 74177; 99284; Q9967